=== PATIENT | female | born 1950 | race Caucasian/White ===

== ENCOUNTER 2017-06-03 08:46 | Emergency (ER) | payer MEDICARE, OTHER, SELFPAY ==
[2017-06-03 09:15] VITALS: BP 169/96; PULSE 98; RESP 16; TEMP 36.6; O2SAT 96; BMI 30.1
--- NOTE | 2017-06-03 09:21 | HMH.EDUTC ---
[facility] [place]ression: Acute pharyngitis Qualifiers: Pharyngitis/tonsillitis etiology: unspecified etiology Qualified Code(s): J02.9 - Acute pharyngitis, unspecified Disposition: Home, Self-Care Condition on Discharge: Good Instructions: DI for Viral Pharyngitis Additional Instructions: * No sign of bacterial infection. Likely viral. Virus can take 7-14 days to run their course * Monitor Temp. Follow up if fever develops. * Encourage fluids, water, gatorade, powerade, pedialyte if /toddler/child * warm salt water gargles * warm fluids * sore throat lozenges * sleep elevated * humidifier/vaporizer * Continue your flonase. * Can try Coricidin HBP products over the counter. Safe for those with high blood pressure. * Discussed steroids including risks, benefits, side effects. pt plans to follow up for new, worsening or persisting symptoms. * * Your throat swab was sent for culture. Those results are typically sent to your primary care. Be sure to follow up in 2-3 days if no improvement so they can review those results and treat if necessary. If you don't have primary care, I recommend you get one but in the mean time, you will have to return to a walk in clinic. Referrals: Lashonda Short APRN [Primary Care Provider] - (Follow up IMMEDIATELY for new or worsening symptoms OR no noticeable improvement over the next 48-72 hours. 911 for difficulty breathing or swallowing) Time of Disposition: 09:36 Medical Decision Making Vital Signs: 06/03/17 09:15 Temperature 97.9 F Temperature Source Temporal Artery Scan Pulse Rate [Right Radial] 98 H Respiratory Rate 16 Blood Pressure [Left Arm] 169/96 Blood Pressure Mean [Left Arm] 120 02 Sat by Pulse Oximetry 96 Oxygen Delivery Method Room Air - Lab Data Lab results reviewed: Yes: I reviewed the patient's lab results. Flu a neg Flu B neg Strep neg - Raul Inquiry Pt receiving controlled substance: No [facility] [place] General Stated complaint: sore throat Time Seen by Provider: 06/03/17 09:14 Mode of Arrival: Family Vehicle Source of Information: Patient Limitations: No Limitations Description of Symptoms (Recalled from Triage Doc. by RN): pt states her sore throat and diarrhea started on sunday but now she is having fevers, aches, chills also. HEENT Symptoms (Recalled from RN notes): Yes (sore throat, fever, body aches, chills) Resp Symptoms (Recalled from RN notes): No Skin Symptoms (Recalled from RN notes): No MS Symptoms (Recalled from RN notes): No Functional Status (Recalled from RN notes): na - History of Present Illness Provider Complaint: c/o primarily of sore throat. Wants to be sure no flu or strep. [place] ok Sunday. Sunday evening diarrhea. Sunday night, sore throat developed in middle of night. Better yesterday but worse again last night. Better since being awake this morning and having hot tea. Accompanied w/ fatigue, rhinorrhea, aches, chills. No fever. baseline chronic cough. Unchanged. No known sick contacts. Hasn't taken anything other than daily medications since symptoms started. 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) flovent, ventolin, flonase, azelastine, singulair, albuterol nebs PRN - Related Data Allergies Allergy/AdvReac Type Severity Reaction Status Date / Time amlodipine [From [facility]] Allergy Unknown NA-NAUSEA/V Verified 06/03/17 09:03 OMITING ciprofloxacin [CIPROFLOXACIN] Allergy Unknown NA-NAUSEA/V Verified 06/03/17 09:03 OMITING codeine [CODEINE] Allergy Unknown NA-NAUSEA/VOMITING Verified 06/03/17 09:03 SEVERE hydrochlorothiazide Allergy Unknown NA-NAUSEA/VOMITING Verified 06/03/17 09:03 [From HYZAAR] CAN TAKE HCTZ NOT HYZARR levofloxacin [From [facility]QU[facility]] Allergy Unknown NA-NAUSEA/V Verified 06/03/17 09:03 OMITING lisinopril [LISINOPRIL] Allergy Unknown NA-NAUSEA/V Verified 06/03/17 09:03 OMITING
--- NOTE | 2017-06-03 09:24 | ED_ITS ---
[facility] [place] Clinical Impression: Acute pharyngitis Qualifiers: Pharyngitis/tonsillitis etiology: unspecified etiology Qualified Code(s): J02.9 - Acute pharyngitis, unspecified Disposition: Home, Self-Care Condition on Discharge: Good Instructions: DI for Viral Pharyngitis Additional Instructions: * No sign of bacterial infection. Likely viral. Virus can take 7-14 days to run their course * Monitor Temp. Follow up if fever develops. * Encourage fluids, water, gatorade, powerade, pedialyte if /toddler/ child * warm salt water gargles * warm fluids * sore throat lozenges * sleep elevated * humidifier/vaporizer * Continue your flonase. * Can try Coricidin HBP products over the counter. Safe for those with high blood pressure. * Discussed steroids including risks, benefits, side effects. pt plans to follow up for new, worsening or persisting symptoms. * * Your throat swab was sent for culture. Those results are typically sent to your primary care. Be sure to follow up in 2-3 days if no improvement so they can review those results and treat if necessary. If you don't have primary care , I recommend you get one but in the mean time, you will have to return to a walk in clinic. Referrals: Lashonda Short APRN [Primary Care Provider] - (Follow up IMMEDIATELY for new or worsening symptoms OR no noticeable improvement over the next 48-72 hours. 911 for difficulty breathing or swallowing) Time of Disposition: 09:36 Medical Decision Making Vital Signs: 06/03/17 09:15 Temperature 97.9 F Temperature Source Temporal Artery Scan Pulse Rate [Right Radial] 98 H Respiratory Rate 16 Blood Pressure [Left Arm] 169/96 Blood Pressure Mean [Left Arm] 120 02 Sat by Pulse Oximetry 96 Oxygen Delivery Method Room Air - Lab Data Lab results reviewed: Yes: I reviewed the patient's lab results. Flu a neg Flu B neg Strep neg - Raul Inquiry Pt receiving controlled substance: No [facility] [place] - General Stated complaint: sore throat Time Seen by Provider: 06/03/17 09:14 Mode of Arrival: Family Vehicle Source of Information: Patient Limitations: No Limitations Description of Symptoms (Recalled from Triage Doc. by RN): pt states her sore throat and diarrhea started on sunday but now she is having fevers, aches, chills also. HEENT Symptoms (Recalled from RN notes): Yes (sore throat, fever, body aches, chills) Resp Symptoms (Recalled from RN notes): No Skin Symptoms (Recalled from RN notes): No MS Symptoms (Recalled from RN notes): No Functional Status (Recalled from RN notes): na - History of Present Illness Provider Complaint: c/o primarily of sore throat. Wants to be sure no flu or strep. [place] ok Sunday. Sunday evening diarrhea. Sunday night, sore throat developed in middle of night. Better yesterday but worse again last night. Better since being awake this morning and having hot tea. Accompanied w/ fatigue , rhinorrhea, aches, chills. No fever. baseline chronic cough. Unchanged. No known sick contacts. Hasn't taken anything other than daily medications since symptoms started. 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] Allergy Unknown NA-NAUSEA/V Verified 06/03/17 09:03 OMITING
[2017-06-03 09:34] LABS: UTC Influenza A Antigen Negative (Negative); UTC Influenza B Antigen Negative (Negative); UTC Strep Screen (Rapid) Negative (Negative)
[2017-06-03 09:35] VITALS: BP 166/92; PULSE 95; RESP 18; TEMP 36.7; O2SAT 97
== END 2017-06-03 09:41 | disposition home or self-care (01) ==
PROVIDERS: Emergency Provider Nurse Practitioner Family; Family Provider Family Medicine; PCP Nurse Practitioner
DX: J02.9 Acute pharyngitis, unspecified (principal); I10 Essential (primary) hypertension
CPT/HCPCS: 87804; 87880; 99202

== ENCOUNTER → 2017-08-03 14:42 | Outpatient (CLI) | payer MEDICARE, OTHER, SELFPAY ==
--- NOTE | 2017-08-03 14:47 | CT_ITS ---
CT soft tissue neck wo con INDICATION: Swelling/knot below left ear left cheek area ITS.REASON: PAROTITIS, NECK SWELLING ORDERING PHYSICIAN: Lashonda Short PATIENT AGE: 67 years TECHNIQUE: Axial images are obtained without contrast. Sagittal and coronal reformatted images are reviewed as well. A BB is placed to courtney the palpable area of interest All CT scans at the facility use one or more dose reduction, viz: automated exposure control; ma/kV adjustment per patient size (including targeted exams where dose is matched to indication; i.e. head); or iterative reconstruction technique. FINDINGS: A BB is placed over the left cheek and inferior to the left ureter to marked areas of palpable interest. The nasopharynx has an unremarkable appearance of the uvula, epiglottis, submandibular glands, and laryngeal area. The palpable region in the left cheek region corresponds to an anterior extension of the left parotid gland . Just deep to the placed BB inferior to the left ear also is the left parotid gland. No parotid mass is evident. No adenopathy. There are scattered small nodes in the neck but no enlarged lymph nodes.. The thyroid gland is somewhat lobular in contour. There are mild centrilobular emphysematous changes in the lung apices. IMPRESSION: 1. The palpable region of interest in the left cheek area represents an anterior extension of the left parotid gland and the palpable area inferior to the left ear also corresponds to the parotid gland. No parotid mass or adenopathy. No sialoliths apparent. 2. Otherwise negative CT neck without contrast
== END ==
PROVIDERS: Family Provider Family Medicine; PCP Nurse Practitioner; Visit Provider Nurse Practitioner
DX: K11.21 Acute sialoadenitis (principal); R22.1 Localized swelling, mass and lump, neck
CPT/HCPCS: 70490

== ENCOUNTER → 2017-12-05 12:47 | Outpatient (CLI) | payer MEDICARE, OTHER, SELFPAY | PROVIDERS: Family Provider Family Medicine; PCP Nurse Practitioner; Visit Provider Nurse Practitioner | DX: R60.1 Generalized edema (principal) | CPT/HCPCS: 93306 ==

== ENCOUNTER → 2018-03-29 09:23 | Outpatient (CLI) | payer MEDICARE, OTHER, SELFPAY ==
--- NOTE | 2018-03-29 09:26 | US_ITS ---
US abdomen limited HISTORY: ORDERING PHYSICIAN: Lashonda Short PATIENT AGE: 68 years Comparison: August [address] abdomen and pelvis (08) (12/08/2013 Sagittal, transverse and decubitus imaging of the gallbladder was performed. GALLBLADDER - minimal sludge in gallbladder. No stones are evident. There is no gallbladder wall thickening. Common duct is normal in diameter. Liver: Large cyst at superior right lobe. Appears be thin-walled clear hepatic cyst measuring up to 8 cm transverse x7.4 cm length x 6.2 cm transverse on ultrasound. ( This measures are slightly smaller, not larger than the July 2013 ultrasound) .-(. A second much smaller hepatic cyst towards the left lobe adjacent vessels at the lisy hepatis was seen on prior CT and ultrasound on but but was not identified, not imaged with today's ultrasound.. . Portal vein with normal direction flow and normal caliber Pancreas: Unremarkable. The head, body & medial tail of pancreas are best visualized and appear satisfactory. No ductal dilatation. Right kidney: Unremarkable appearing. No hydronephrosis. . Normal size measuring 11.35 seem in length cortex well-maintained. IMPRESSION:. 1. Gallbladder with minimal sludge but no gallstones. No wall thickening or inflammation . Common duct normal 2. Large benign hepatic cyst measuring 8 cm at the superior right lobe of liver is again identified. This was seen in 2014 ...
== END ==
PROVIDERS: PCP Nurse Practitioner; Visit Provider Nurse Practitioner
DX: R10.11 Right upper quadrant pain (principal)
CPT/HCPCS: 76705

== ENCOUNTER → 2018-11-20 09:52 | Outpatient (CLI) | payer MEDICARE, OTHER, SELFPAY | PROVIDERS: PCP Family Medicine; Visit Provider Nurse Practitioner | DX: R06.02 Shortness of breath (principal); R60.1 Generalized edema; I10 Essential (primary) hypertension | CPT/HCPCS: 93306 ==

== ENCOUNTER 2019-08-27 19:40 | Emergency (ER) | payer MEDICARE, OTHER, SELFPAY ==
[2019-08-27 19:51] VITALS: BMI 32.8
--- NOTE | 2019-08-27 20:00 | HMH.EDUTC ---
[facility] [place] Clinical Impression: UTI (urinary tract infection) Qualifiers: Urinary tract infection type: site unspecified Hematuria presence: with hematuria Qualified Code(s): N39.0 - Urinary tract infection, site not specified Disposition: Home, Self-Care Condition on Discharge: Good Instructions: Urinary Tract Infection Additional Instructions: Drink plenty of fluids. Take tylenol or ibuprofen for pain or fever. Take the medications as directed. Follow up with your regular doctor. GO TO THE ER FOR ANY WORSENING SYMPTOMS The pyridium will make your urine turn orange, this is an expected side effect. It will stain your clothes if it comes into contact with them. Prescriptions: Ondansetron [Zofran 4mg ODT] 4 mg PO Q8HP PRN #10 tab.rapdis PRN Reason: Nausea Transmission Status: Received by [facility] Nitrofurantoin Monohyd/M-Cryst [Macrobid 100 mg Capsule] 100 mg PO BID 5 Days #10 cap Transmission Status: Received by [facility] Phenazopyridine HCl [Pyridium 200mg Tablet] 200 pow PO TID #6 tab Transmission Status: Received by [facility] Referrals: Kelvin Llamas MD [Primary Care Provider] - Time of Disposition: 20:25 Medical Decision Making - Medical Records Medical records reviewed: No: I reviewed the patient's medical records. - Raul Inquiry Pt receiving controlled substance: No Vital Signs: 08/27/19 20:01 08/27/19 20:36 Temperature 98.7 F 98.7 F Temperature Source Oral Pulse Rate 97 H Pulse Rate [Left Brachial] 97 H Respiratory Rate 18 18 Blood Pressure 196/98 H Blood Pressure [Left Arm] 196/98 H Blood Pressure Mean [Left Arm] 130 Blood Pressure Source [Left Arm] Automatic Cuff Blood Pressure Position [Left Arm] Sitting 02 Sat by Pulse Oximetry 96 Oxygen Delivery Method Room Air - Lab Data Lab results reviewed: Yes: I reviewed the patient's lab results. Lab Results 08/27/19 19:51: Urine Color Dark yellow, Urine Appearance Cloudy, Urine pH 7.0, Ur Specific Bowie 1.015, Urine Protein Trace, Urine Glucose (UA) Negative, Urine Ketones Negative, Urine Blood 3+, Urine Nitrate Positive A, Urine Bilirubin Negative, Urine Urobilinogen 0.2, Ur Leukocyte Esterase 3+ A Orders (Tests/Meds): ED MEDICATIONS Discontinued Medications Generic Name Dose Route Start Last Admin Trade Name Hui PRN Reason Stop Dose Admin Ceftriaxone Sodium 1 gm 08/27/19 20:31 08/27/19 20:20 Rocephin 1gm Vial IM 08/27/19 20:32 1 gm ONCE ONE Administration Protocol Lidocaine HCl 0 ml 08/27/19 20:31 08/27/19 20:20 Lidocaine 1% 10ml Mdv IM 08/27/19 20:32 2.1 ml ONCE ONE Administration ORDERS Category Date Time Status Urine Culture Stat Micro 08/27/19 19:45 Received [facility] [place] - General Stated complaint: possible kidney infection Time Seen by Provider: 08/27/19 20:00 - History of Present Illness Provider Complaint: She c/o burning with urination and urinary frequency since yesterday. She states that occasionally she gets UTIs. - Related Data Home Medications Medication Instructions Recorded Confirmed ibuprofen 800 mg tablet 800 mg PO BID 90 Days #270 08/23/17 08/27/19 losartan 100 mg tablet 100 mg PO DAILY 90 Days #90 08/23/17 08/27/19 sertraline 50 mg tablet 50 mg PO DAILY 90 Days #90 08/23/17 08/27/19 zolpidem 5 mg tablet 5 mg PO HS 90 Days #90 08/23/17 08/27/19 Aspirin [Ecotrin] 325 mg PO DAILY 10/09/18 08/27/19 Levocetirizine Dihydrochloride 5 mg PO DAILY 10/09/18 08/27/19 [Xyzal] Pantoprazole Sodium [Protonix 40mg 40 mg PO DAILY 08/27/19 08/27/19 tablet] Previous Rx's Medication Instructions Recorded Nitrofurantoin Monohyd/M-Cryst 100 mg PO BID 5 Days #10 cap 08/27/19 [Macrobid 100 mg Capsule] Ondansetron [Zofran 4mg ODT] 4 mg PO Q8HP PRN #10 tab.rapdis 08/27/19 Phenazopyridine HCl [Pyridium 200 pow PO TID #6 tab 08/27/19 200mg Tablet] Allergies
[2019-08-27 20:01] VITALS: BP 196/98; PULSE 97; RESP 18; TEMP 37.1; O2SAT 96; BMI 32.8
[2019-08-27 20:08] LABS: Apearance,Urine Cloudy (Clear); Bilirubin,Urine Negative (Negative); Blood, Urine 3+ (Negative); Color,Urine Dark Yellow (Yellow); Glucose,Urine (UA) Negative (Negative); Ketones,Urine Negative (Negative); Protein,Urine Trace (Negative); Specific Gravity, Urine 1.015 (1.005-1.030); Urobilinogen,Urine 0.2 EU/dl (0.2)
[2019-08-27 20:09] LABS: UTC Leukocyte Esterase,Urine 3+ (Negative); UTC Nitrate,Urine Positive (Negative)
[2019-08-27 20:36] VITALS: BP 196/98; PULSE 97; RESP 18; TEMP 37.1; O2SAT 96
== END 2019-08-27 20:46 | disposition home or self-care (01) ==
PROVIDERS: Emergency Provider Nurse Practitioner Family; PCP Family Medicine
DX: N30.00 Acute cystitis without hematuria (principal); I10 Essential (primary) hypertension; F41.8 Other specified anxiety disorders; K21.9 Gastro-esophageal reflux disease without esophagitis; Z88.1 Allergy status to other antibiotic agents; Z88.2 Allergy status to sulfonamides; Z88.5 Allergy status to narcotic agent; Z88.8 Allergy status to other drugs, medicaments and biological substances; Z90.49 Acquired absence of other specified parts of digestive tract; Z90.79 Acquired absence of other genital organ(s)
CPT/HCPCS: G0463; 81003; 87086; 87088; 87186; 96372; 99202

== ENCOUNTER → 2020-06-22 10:32 | Outpatient (POV) | payer MEDICARE, OTHER, SELFPAY | PROVIDERS: Visit Provider Dermatology | DX: Z00.00 Encounter for general adult medical examination without abnormal findings (principal) ==

== ENCOUNTER → 2020-08-23 08:41 | Outpatient (POV) | payer MEDICARE, OTHER, SELFPAY | PROVIDERS: Visit Provider Nurse Practitioner Family | DX: Z00.00 Encounter for general adult medical examination without abnormal findings (principal) ==

== ENCOUNTER → 2020-11-24 10:13 | Outpatient (CLI) | payer MEDICARE, OTHER, SELFPAY ==
--- NOTE | 2020-11-24 10:16 | US_ITS ---
PROCEDURE: US THYROID CLINICAL INDICATION: THYROID NODULE COMPARISON: US THY US THYROID from 08/15/2016 FINDINGS: Right lobe: 4 x 1.8 x 1.8 cm. 3 mm hypoechoic nodule in the mid aspect of the right lobe of the thyroid gland. Heterogeneous echogenicity in the upper pole without discrete nodule. Left lobe: 3.6 x 1.1 x 1.4 cm. 2 mm cyst in the mid polar region. Isthmus: Mildly thickened at 5 mm Additional findings: None IMPRESSION: There are small bilateral hypoechoic nodules of the thyroid gland which appear benign. No suspicious nodules evident. Previously noted areas of heterogeneous echogenicity are less apparent. Dictated by: Dutch Carlson MD 11/24/2020 17:16 Dutch Carlson MD in [place] 11/24/2020 17:16
== END ==
PROVIDERS: PCP Family Medicine; Visit Provider Nurse Practitioner Family
DX: E04.1 Nontoxic single thyroid nodule (principal)
CPT/HCPCS: 76536

== ENCOUNTER → 2020-12-27 10:48 | Outpatient (CLI) | payer MEDICARE, OTHER, SELFPAY ==
--- NOTE | 2020-12-27 10:52 | XR_ITS ---
PROCEDURE: XR LUMBAR SPINE MIN 4V CLINICAL INDICATION: ACUTE LT-SIDED LOW BACK PAIN, W/O SCIATICA COMPARISON: No exams were available for comparison FINDINGS: Mild lumbar scoliosis convex left. Degenerative disc disease L1-S1. 3 mm retrolisthesis L2 on L3 and L3 on L4. Facet arthritic changes are present at L5-S1. There is some sclerosis of the right SI joint inferiorly. No acute fracture or dislocation. No lytic or blastic change. Other findings:None. IMPRESSION: Degenerative changes as described above Dictated by: Dutch Carlson MD 12/27/2020 11:56 Dutch Carlson MD in [place] 12/27/2020 11:56
== END ==
PROVIDERS: PCP Nurse Practitioner Family; Visit Provider Nurse Practitioner Family
DX: M54.5 Low back pain (principal)
CPT/HCPCS: 72110

== ENCOUNTER → 2021-01-19 15:18 | Outpatient (CLI) | payer MEDICARE, OTHER, SELFPAY ==
--- NOTE | 2021-01-19 15:19 | MR_ITS ---
PROCEDURE INFORMATION: Exam: MR Lumbar Spine Without Contrast Exam date and time: 01/19/2021 3:19 PM Age: 70 years old Clinical indication: Low back pain; Additional info: Lumbar ddd TECHNIQUE: Imaging protocol: Multiplanar magnetic resonance images of the lumbar spine without intravenous contrast. COMPARISON: CR XR LUMBAR SPINE MIN 4V 12/27/2020 10:55 AM FINDINGS: Vertebrae: Unremarkable. Spinal cord: Normal signal. No cord compression. L1-L2: There is disc space narrowing and desiccation. There are moderate degenerative end plate changes at this level. Disc bulging extends into both neural foramen causing mild bilateral neural foraminal narrowing. There is facet arthropathy and ligamentum flavum hypertrophy. L2-L3: There is mild retrolisthesis at this level. There is disc space narrowing and desiccation. There are moderate degenerative end plate changes at this level. Disc bulging extends into both neural foramen causing moderate bilateral neural foraminal narrowing, right worse than left. There is facet arthropathy and ligamentum flavum hypertrophy. There is mild spinal canal stenosis. L3-L4: There is mild retrolisthesis at this level. There is disc space narrowing and desiccation. There are moderate degenerative end plate changes at this level. There is a moderate disc/osteophyte complex that flattens the ventral thecal sac. There is a small central disc protrusion. There is moderate/severe bilateral neural foraminal narrowing, right worse than left. There is facet arthropathy and ligamentum flavum hypertrophy. There is mild spinal canal stenosis. L4-L5: There is disc desiccation. There is a moderate disc/osteophyte complex that flattens the ventral thecal sac. There is a small central disc protrusion. Disc bulging extends into both neural foramen causing moderate bilateral neural foraminal narrowing, left worse than right. There is facet arthropathy and ligamentum flavum hypertrophy. There is mild spinal canal stenosis. L5-S1: There is mild retrolisthesis at this level. There is disc space narrowing and desiccation. There are moderate degenerative end plate changes at this level. There is degenerative disc disease including disc space narrowing and dessication. There is moderate disc bulging. There is a superimposed left foraminal disc herniation. There is moderate/severe left-sided neuroforaminal narrowing. There is mild right-sided neuroforaminal narrowing. There is facet arthropathy and ligamentum flavum hypertrophy. Soft tissues: Unremarkable. Liver: A large cystic-appearing mass is suspected in the dome of the liver. Although this is only seen on the coronal research assistant professor sequence, it does not look like artifact. This is not fully characterized on this exam. Kidneys and ureters: There are high signal lesions in the right kidney, possibly cysts, but not fully characterized on this MRI exam. IMPRESSION: 1. Moderate multilevel degenerative changes causing varying degrees of spinal canal and neuroforaminal narrowing. Please see details above. 2. A large cystic-appearing mass is suspected in the dome of the liver. Although this is only seen on the coronal research assistant professor sequence, it does not look like artifact. This is not fully characterized on this exam. Followup ultrasound is recommended.
== END ==
PROVIDERS: PCP Nurse Practitioner Family; Visit Provider Nurse Practitioner Family
DX: M54.50 Low back pain, unspecified (principal); M51.36 Other intervertebral disc degeneration, lumbar region
CPT/HCPCS: 72148; 76376

== ENCOUNTER → 2021-02-03 12:59 | Outpatient (CLI) | payer MEDICARE, OTHER, SELFPAY ==
[2021-02-03 14:33] LABS: Blood Urea Nitrogen 16 mg/dl (7-17); Estimated Glomerular Filt Rate 122 ml/min (>60); GFR (African American) 148 ML/MIN (>60)
== END ==
PROVIDERS: Visit Provider Nurse Practitioner Family
DX: R16.0 Hepatomegaly, not elsewhere classified (principal)
CPT/HCPCS: 36415; 82565; 84520

== ENCOUNTER → 2021-02-09 09:28 | Outpatient (CLI) | payer MEDICARE, OTHER, SELFPAY ==
--- NOTE | 2021-02-09 09:31 | CT_ITS ---
PROCEDURE: CT ABDOMEN WO/W CON CLINICAL HISTORY: LIVER MASS Liver mass seen on recent MRI COMPARISON: CT ABDPELW/O CT ABD PELVIS W/O CONTRAST from 09/16/2013 TECHNIQUE: 100 mL Isovue 370 Axial images obtained with sagittal and coronal reformats. All CT scans at the facility use one or more dose reduction, viz: automated exposure control, ma/kV adjustment per patient size (including targeted exams where dose is matched to indication, i.e. head), or iterative reconstruction technique. FINDINGS: Minimal atelectatic or fibrotic changes are present in the lingula and right middle lobe. There is a small hiatal hernia. A 7.8 x 6 x 6.5 cm isodense lesion is present in the right hepatic lobe posteriorly, segment 7. This is very slightly greater than water density measuring near 11 Hounsfield units. This does not demonstrate contrast enhancement consistent with a hepatic cyst. The liver is otherwise unremarkable. There are small bilateral renal cysts. No renal or ureteral calculi. The adrenal glands, pancreas, and gallbladder have an unremarkable appearance. No intestinal obstruction or free air. There is a small umbilical hernia containing fat. Mild degenerative changes are present in the lumbar spine. There is partial fusion of the right SI joint. IMPRESSION: 8 cm well-circumscribed isodense lesion of the right hepatic lobe consistent with a hepatic cyst. This is not significantly changed compared to 09/16/2013. Dictated by: Dutch Carlson MD 02/10/2021 09:01 Dutch Carlson MD in [place] 02/10/2021 09:01
== END ==
PROVIDERS: PCP Nurse Practitioner Family; Visit Provider Nurse Practitioner Family
DX: R16.0 Hepatomegaly, not elsewhere classified (principal)
CPT/HCPCS: 74170; Q9967

== ENCOUNTER 2021-03-27 11:14 | Emergency (ER) | payer MEDICARE, OTHER, SELFPAY ==
[2021-03-27 12:56] VITALS: BP 162/82; RESP 19; TEMP 37.2; O2SAT 98; BMI 30.1
[2021-03-27 13:29] LABS: UTC Influenza A Antigen Negative (Negative); UTC Influenza B Antigen Negative (Negative)
--- NOTE | 2021-03-27 13:29 | HMH.EDUTC ---
[facility] [place] Disposition Clinical Impression: Upper respiratory infection Qualifiers: URI type: unspecified viral URI Qualified Code(s): J06.9 - Acute upper respiratory infection, unspecified Disposition: Home, Self-Care Condition on Discharge: Good Instructions: DI for Viral Upper Respiratory Infection -- Adult Additional Instructions: covid swab was sent to lab, call later today for results. self isolate until test results are known to be negative No sign of a bacterial infection. Likely viral. Viruses can take 7-14 days to run their course. Nasal saline and bulb syringe or nose Kristen to remove nasal drainage to help with nasal congestion. Hard to eat, drink, sleep with nasal congestion so important to keep this cleaned out. Monitor temp. Tylenol or Motrin as needed for pain or fever Encourage fluids, water, Gatorade, Powerade, Pedialyte if infant/toddler/child Warm salt water gargles Warm fluids Sore throat lozenges Sleep elevated Humidifier/vaporizer Follow-up immediately for new or worsening symptoms or no noticeable improvement over the next 48-72 hours. Prescriptions: predniSONE [Prednisone 20mg Tab] 20 mg PO BID #10 tab Prescription Printed Referrals: Kelvin Llamas MD [Primary Care Provider] - Time of Disposition: 13:50 Medical Decision Making - Raul Inquiry Pt receiving controlled substance: No Vital Signs: 03/27/21 12:56 Temperature 99.0 F Temperature Source Oral Respiratory Rate 19 Blood Pressure [Right Arm] 162/82 H Blood Pressure Mean [Right Arm] 108 Blood Pressure Source [Right Arm] Automatic Cuff Blood Pressure Position [Right Arm] Sitting 02 Sat by Pulse Oximetry 98 Oxygen Delivery Method Room Air - Lab Data Lab Results 03/27/21 13:02: Influenza Type A Ag Negative, Influenza Type B Ag Negative Orders (Tests/Meds): ORDERS Category Date Time Status Covid-19 Nasal PCR ([facility]) Routine Lab 03/27/21 13:11 Received [facility] [place] HPI - General Chief complaint: Urgent [facility] Stated complaint: weakness, cough Time Seen by Provider: 03/27/21 13:29 Mode of Arrival: Ambulatory Source of Information: Patient Limitations: No Limitations Description of Symptoms (Recalled from Triage Doc. by RN): Pt stated that this started sunday with nasal drainage, BAILEY, chills, and nausea. HEENT Symptoms (Recalled from RN notes): Yes Resp Symptoms (Recalled from RN notes): No Skin Symptoms (Recalled from RN notes): No MS Symptoms (Recalled from RN notes): No Functional Status (Recalled from RN notes): n/a - History of Present Illness Provider Complaint: 71 yr old female presents for cough, bailey, chills, clear nasal congestion and sinus pressure. - Related Data Home Medications Medication Instructions Recorded Confirmed ibuprofen 800 mg tablet 800 mg PO BID 90 Days #270 08/23/17 10/20/20 losartan 100 mg tablet 100 mg PO DAILY 90 Days #90 08/23/17 10/20/20 sertraline 50 mg tablet 50 mg PO DAILY 90 Days #90 08/23/17 10/20/20 zolpidem 5 mg tablet 5 mg PO HS 90 Days #90 08/23/17 10/20/20 Aspirin [Ecotrin] 325 mg PO DAILY 10/09/18 10/20/20 Levocetirizine Dihydrochloride 5 mg PO DAILY 10/09/18 10/20/20 [Xyzal] Pantoprazole Sodium [Protonix 40mg 40 mg PO DAILY 08/27/19 10/20/20 tablet] Albuterol Sulfate [Proair Hfa] 2 puff IH NEEDED PRN 10/20/20 Cholecalciferol (Vitamin D3) 1,000 unit PO DAILY 10/20/20 [Vitamin D3 1,000 Unit Cap] Fluticasone Propionate [Flovent 2 puff IH DAILY 10/20/20 Hfa 110mcg Inhaler] Previous Rx's Medication Instructions Recorded Ondansetron [Zofran 4mg ODT] 4 mg PO Q8HP PRN #10 tab.rapdis 08/27/19 predniSONE [Prednisone 20mg 20 mg PO BID #10 tab 03/27/21 Tab] Allergies Allergy/AdvReac Type Severity Reaction Status Date / Time amlodipine [From [facility]] Allergy Unknown NA-NAUSEA/V Verified 03/27/21 13:02 OMITING ciprofloxacin [CIPROFLOXACIN] Allergy Unknown NA-NAUSEA/V Verified 03/27/21 13:02 OMITING codeine [CODE
[2021-03-27 14:04] VITALS: BP 162/82; PULSE 108; RESP 18; TEMP 37.2; O2SAT 98
== END 2021-03-27 14:04 | disposition home or self-care (01) ==
PROVIDERS: Emergency Provider Nurse Practitioner Family; PCP Family Medicine
DX: U07.1 COVID-19 (principal); J06.9 Acute upper respiratory infection, unspecified; K21.9 Gastro-esophageal reflux disease without esophagitis; I10 Essential (primary) hypertension; F41.8 Other specified anxiety disorders
CPT/HCPCS: G0463; 87804; 99202; C9803; U0003; U0005

== ENCOUNTER → 2021-03-29 08:50 | Outpatient (CLI) | payer MEDICARE, OTHER, SELFPAY ==
[2021-03-29] VITALS (7 sets, daily range): BP systolic 115–168; BP diastolic 67–85; PULSE 77–94; RESP 16–18; TEMP 36.1; O2SAT 96–98
== END ==
PROVIDERS: PCP Family Medicine; Visit Provider Family Medicine
DX: U07.1 COVID-19 (principal); Z23 Encounter for immunization
CPT/HCPCS: 96365

== ENCOUNTER 2021-08-24 10:51 | Emergency (ER) | payer MEDICARE, OTHER, SELFPAY ==
[2021-08-24 11:18] LABS: Adenovirus,PCR Not Detected (NotDetected); Bordetella Pertussis Not Detected (NotDetected); Chlamydophila Pneumoniae, PCR Not Detected (NotDetected); Coronavirus 19, PCR Not Detected (NotDetected); Coronavirus 229E Not Detected (NotDetected); Coronavirus NL63 Not Detected (NotDetected); Coronavirus OC43 Not Detected (NotDetected); Coronovirus HKU1,PCR Not Detected (NotDetected); Human Metapneumovirus Not Detected (NotDetected); Influenza A, PCR Not Detected (NotDetected); Influenza AH1, 2009 Not Detected (NotDetected); Influenza AH1, PCR Not Detected (NotDetected); Influenza AH3,PCR Not Detected (NotDetected); Influenza B, PCR Not Detected (NotDetected); Mycoplasma Pneumoniae, PCR Not Detected (NotDetected); Parainfluenza 1, PCR Not Detected (NotDetected); Parainfluenza 2, PCR Not Detected (NotDetected); Parainfluenza 3, PCR Not Detected (NotDetected); Parainfluenza 4, PCR Not Detected (NotDetected); Respiratory Syncytial Virus Not Detected (NotDetected); Rhinovirus/Enterovirus Not Detected (NotDetected)
[2021-08-24 11:21] VITALS: BP 174/93; PULSE 85; RESP 19; TEMP 37.3; O2SAT 95; BMI 31.8
--- NOTE | 2021-08-24 11:25 | HMH.EDUTC ---
[facility] [place] Disposition Clinical Impression: Viral syndrome, Exposure to COVID-19 virus Sinusitis Qualifiers: Sinusitis location: unspecified location Chronicity: acute Recurrence: non-recurrent Qualified Code(s): J01.90 - Acute sinusitis, unspecified Disposition: Home, Self-Care Condition on Discharge: Good Instructions: DI for Sinusitis, DI for Viral Syndrome, Preventing the Spread of Coronavirus Discharge Instructions Additional Instructions: Drink plenty of fluids. Take tylenol or ibuprofen for pain or fever. Take the medications as directed. Follow up with your regular doctor. GO TO THE ER FOR ANY WORSENING SYMPTOMS Quarantine until you know the results of your covid-19 test. Notify your school or workplace of your results and follow their instructions regarding return to work/school. Prescriptions: Benzonatate [Benzonatate 100mg cap] 100 mg PO TIDP PRN #30 cap PRN Reason: Cough Transmission Status: Received by [facility] guaiFENesin [Mucinex 600mg tablet] 1 - 2 tab PO BIDP PRN #30 tab PRN Reason: Congestion Transmission Status: Received by [facility] Azithromycin [Z-Branden 250mg Tab*] 250 mg PO UD DOSE PK #6 tab Transmission Status: Received by [facility] Referrals: Maverick Cobb MD [Primary Care Provider] - Time of Disposition: 11:42 Medical Decision Making - Medical Records Medical records reviewed: No: I reviewed the patient's medical records. - Raul Inquiry Pt receiving controlled substance: No Vital Signs: 08/24/21 11:21 08/24/21 11:47 Temperature 99.2 F 99.0 F Temperature Source Oral Pulse Rate 85 Pulse Rate [Left Radial] 85 Respiratory Rate 19 19 Blood Pressure 174/93 H Blood Pressure [Right Arm] 174/93 H Blood Pressure Mean [Right Arm] 120 02 Sat by Pulse Oximetry 95 - Lab Data Lab results reviewed: Yes: I reviewed the patient's lab results. Orders (Tests/Meds): ORDERS Category Date Time Status Full Resp Panel w/COVID ([facility]) Routine Lab 08/24/21 11:13 Received [facility] [place] HPI - General Stated complaint: h/a, body aches, upset stomach, weakness Time Seen by Provider: 08/24/21 11:25 Mode of Arrival: Ambulatory Source of Information: Patient Limitations: No Limitations Description of Symptoms (Recalled from Triage Doc. by RN): here for covid test. pt had covid in march, and she feels the same way now that she did HEENT Symptoms (Recalled from RN notes): Yes Resp Symptoms (Recalled from RN notes): Yes Skin Symptoms (Recalled from RN notes): No MS Symptoms (Recalled from RN notes): No Functional Status (Recalled from RN notes): wnl - History of Present Illness Provider Complaint: She states that for the past 2 days she has has had chills, sinus congestion, a scratchy sore throat and she has felt bad. She had covid last year and she feels like she did then. - Related Data Home Medications Medication Instructions Recorded Confirmed ibuprofen 800 mg tablet 800 mg PO BID 90 Days #270 08/23/17 07/07/21 losartan 100 mg tablet 100 mg PO DAILY 90 Days #90 08/23/17 07/07/21 sertraline 50 mg tablet 50 mg PO DAILY 90 Days #90 08/23/17 07/07/21 zolpidem 5 mg tablet 5 mg PO HS 90 Days #90 08/23/17 07/07/21 Aspirin [Ecotrin] 325 mg PO DAILY 10/09/18 07/07/21 Levocetirizine Dihydrochloride 5 mg PO DAILY 10/09/18 07/07/21 [Xyzal] Pantoprazole Sodium [Protonix 40mg 40 mg PO DAILY 08/27/19 07/07/21 tablet] Albuterol Sulfate [Proair Hfa] 2 puff IH NEEDED PRN 10/20/20 07/07/21 Cholecalciferol (Vitamin D3) 1,000 unit PO DAILY 10/20/20 07/07/21 [Vitamin D3 1,000 Unit Cap] Fluticasone Propionate [Flovent 2 puff IH DAILY 10/20/20 07/07/21 Hfa 110mcg Inhaler] Previous Rx's Medication Instructions Recorded [id number] 140 gram-sod sulfate 9 See Rx Instructions PO .COMPLEX #3 07/07/21 gram-NaCl 5.2gram-KCl-C oral pwdr each packs Azithromycin [Z-Branden 250mg Tab*] 250 mg PO UD DOSE PK #6 tab 08/24/21 Benzonatate [Benzon
[2021-08-24 11:47] VITALS: BP 174/93; PULSE 85; RESP 19; TEMP 37.2
== END 2021-08-24 11:49 | disposition home or self-care (01) ==
PROVIDERS: Emergency Provider Nurse Practitioner Family; PCP Family Medicine
DX: J01.90 Acute sinusitis, unspecified (principal); B34.9 Viral infection, unspecified; Z20.822 Contact with and (suspected) exposure to COVID-19; I10 Essential (primary) hypertension; K21.9 Gastro-esophageal reflux disease without esophagitis
CPT/HCPCS: 87581; 87632; 87798; 99213; C9803; G0463; U0003; U0005

== ENCOUNTER → 2021-09-24 09:32 | Outpatient (CLI) | payer MEDICARE, OTHER, SELFPAY | PROVIDERS: PCP Nurse Practitioner Family; Visit Provider Ophthalmology | DX: Z01.812 Encounter for preprocedural laboratory examination (principal); Z20.822 Contact with and (suspected) exposure to COVID-19 | CPT/HCPCS: C9803; U0003; U0005 ==

== ENCOUNTER 2021-09-27 07:22 | Day surgery (SDC) | payer MEDICARE, OTHER, SELFPAY ==
[2021-09-22 09:34] VITALS: BMI 31.8
[2021-09-27 07:41] VITALS: BP 166/86; PULSE 88; RESP 18; TEMP 36.6; O2SAT 95
[2021-09-27 08:08] VITALS: BP 168/89; PULSE 84; RESP 20; O2SAT 97
[2021-09-27 08:13] VITALS: BP 163/86; PULSE 79; RESP 18; RESP 20; O2SAT 96
[2021-09-27 08:18] VITALS: BP 162/87; PULSE 79; RESP 18; O2SAT 96
[2021-09-27 08:23] VITALS: BP 158/79; PULSE 80; RESP 16; O2SAT 96
[2021-09-27 08:24] VITALS: BP 173/81; PULSE 82; RESP 16; TEMP 36.6; O2SAT 95
== END 2021-09-27 08:40 | disposition home or self-care (01) ==
LOC: OR 07:24
PROVIDERS: PCP Family Medicine; Visit Provider Ophthalmology
DX: H26.9 Unspecified cataract (principal); F41.9 Anxiety disorder, unspecified; M19.90 Unspecified osteoarthritis, unspecified site; J45.909 Unspecified asthma, uncomplicated; F32.A Depression, unspecified; Z86.79 Personal history of other diseases of the circulatory system
CPT/HCPCS: 66984; V2632

== ENCOUNTER → 2021-10-08 10:06 | Outpatient (CLI) | payer MEDICARE, OTHER, SELFPAY | PROVIDERS: PCP Nurse Practitioner Family; Visit Provider Ophthalmology | DX: Z01.812 Encounter for preprocedural laboratory examination (principal); Z20.822 Contact with and (suspected) exposure to COVID-19 | CPT/HCPCS: C9803; U0003; U0005 ==

== ENCOUNTER 2021-10-11 07:28 | Day surgery (SDC) | payer MEDICARE, OTHER, SELFPAY ==
[2021-10-06 13:38] VITALS: BMI 31.8
[2021-10-11] VITALS (7 sets, daily range): BP systolic 147–183; BP diastolic 76–91; PULSE 64–82; RESP 16–18; TEMP 36.1–36.7; O2SAT 96–100
== END 2021-10-11 09:21 | disposition home or self-care (01) ==
LOC: OR 07:29
PROVIDERS: PCP Nurse Practitioner Family; Visit Provider Ophthalmology
DX: H26.9 Unspecified cataract (principal); J45.909 Unspecified asthma, uncomplicated; F41.9 Anxiety disorder, unspecified; F32.A Depression, unspecified
CPT/HCPCS: 66984; V2632

== ENCOUNTER → 2021-11-08 14:11 | Outpatient (CLI) | payer MEDICARE, OTHER, SELFPAY ==
[2021-11-08 19:19] LABS: Vitamin B12 380 pg/mL (239-931)
== END ==
PROVIDERS: PCP Nurse Practitioner Family; Visit Provider Nurse Practitioner Family
DX: G47.9 Sleep disorder, unspecified (principal); R06.83 Snoring; R26.9 Unspecified abnormalities of gait and mobility; R29.2 Abnormal reflex; R53.83 Other fatigue; R63.5 Abnormal weight gain; R93.7 Abnormal findings on diagnostic imaging of other parts of musculoskeletal system; Z68.32 Body mass index [BMI] 32.0-32.9, adult; G47.33 Obstructive sleep apnea (adult) (pediatric)
CPT/HCPCS: 36415; 82607; 82746; G0399

== ENCOUNTER → 2021-11-14 12:44 | Outpatient (CLI) | payer MEDICARE, OTHER, SELFPAY ==
--- NOTE | 2021-11-14 12:45 | MR_ITS ---
FINAL REPORT CLINICAL HISTORY: gait disturbances, abnormal mri. DIZZINESS. COMPARISON: 01/19/2021 FINDINGS: MRI LUMBAR SPINE W/O CONTRAST Multiplanar MR imaging of the lumbar spine was performed without contrast. On the sagittal T2-weighted images, disc degeneration is seen throughout. There are endplate changes at several levels. There is mild retrolisthesis of L2 on L3 and L3 on L4. There is mild leftward curvature. Note is made of several hemangiomas. There is no evidence of fracture. The conus has an unremarkable appearance. T11-T12: An annular disc bulge is present. T12-L1: An annular disc bulge is present. L1-2: There is an annular disc bulge with facet arthropathy and vertebral osteophytes. L2-3: There is an annular disc bulge with facet arthropathy and vertebral osteophytes. There is moderate right and mild left neural foraminal narrowing. L3-4: There is an annular disc bulge with facet arthropathy and vertebral osteophytes. There is moderate right and mild left neural foraminal narrowing. L4-5: There is an annular disc bulge with facet arthropathy. There is a left foraminal disc protrusion, larger. There is mild right and moderate left neural foraminal narrowing. L5-S1: There is an annular disc bulge with facet arthropathy and vertebral osteophytes. There is mild right and severe left neural foraminal narrowing. There is a 5 mm cyst adjacent to the right side of the L5 spinous process, synovial cyst or ganglion cyst. There is a partially imaged 6.5 cm mass in the liver which may represent a cyst or hemangioma. IMPRESSION: Multilevel disc degeneration and spondylosis with areas of neural foraminal narrowing which is worst on the left at L5-S1. The left foraminal disc protrusion at L4-5 is larger than on the prior exam. 5 mm cyst adjacent to the right side of the L5 spinous process, synovial cyst or ganglion cyst. Partially imaged liver mass may represent a cyst or hemangioma. Reviewed, Interpreted and Dictated by Unruly Byers III, MD Transcribed by Gianna Lozada Authenticated and [facility]
--- NOTE | 2021-11-14 12:45 | MR_ITS ---
FINAL REPORT CLINICAL HISTORY: gait disturbance, DIZZINESS FINDINGS: Multiplanar MR imaging of the brain was performed without contrast. There are scattered foci of increased T2 signal in the cerebral white matter that have a nonspecific appearance but likely represent moderate to severe chronic ischemic/gliotic changes. There is no evidence of intracranial hemorrhage or mass. No abnormal ventricular dilatation is identified. No abnormal extra-axial fluid collection is seen. No abnormality is seen on the diffusion weighted images. The posterior fossa and brainstem are unremarkable. Normal major vessel vascular flow voids are seen. IMPRESSION: Moderate to severe chronic ischemic/gliotic changes. No acute intracranial abnormality. Reviewed, Interpreted and Dictated by Unruly Byers III, MD Transcribed by Sarah Payne Authenticated and [facility]
== END ==
PROVIDERS: PCP Nurse Practitioner Family; Visit Provider Nurse Practitioner Family
DX: G47.9 Sleep disorder, unspecified (principal); R06.83 Snoring; R26.9 Unspecified abnormalities of gait and mobility; R29.2 Abnormal reflex; R53.83 Other fatigue; R63.5 Abnormal weight gain; R93.7 Abnormal findings on diagnostic imaging of other parts of musculoskeletal system; Z68.32 Body mass index [BMI] 32.0-32.9, adult; M54.50 Low back pain, unspecified
CPT/HCPCS: 70551; 72148; 76376

== ENCOUNTER → 2022-04-03 10:11 | Outpatient (CLI) | payer MEDICARE, OTHER, SELFPAY | PROVIDERS: PCP Student in an Organized Health Care Education/Training Program; Visit Provider Student in an Organized Health Care Education/Training Program | DX: R05.9 Cough, unspecified (principal) | CPT/HCPCS: C9803; U0003; U0005 ==

== ENCOUNTER 2022-04-15 08:44 | Emergency (ER) | payer MEDICARE, OTHER, SELFPAY ==
[2022-04-15 09:00] VITALS: BP 147/86; PULSE 102; RESP 20; TEMP 36.6; O2SAT 96; BMI 32.8
[2022-04-15 09:14] LABS: UTC Influenza A Antigen Negative (Negative); UTC Influenza B Antigen Negative (Negative)
--- NOTE | 2022-04-15 09:15 | EXP.UTC ---
Discharge Plan Disposition Patient Disposition: Home, Self-Care Condition: Good Prescriptions Prescriptions: New cephalexin 500 mg capsule 500 mg PO BID Qty: 20 0RF benzonatate 100 mg capsule 100 mg PO TID PRN (Reason: cough) Qty: 30 0RF No Action cetirizine [Zyrtec] 10 mg tablet 10 mg PO DAILY PRN (Reason: allergies) fluticasone propionate 50 mcg/actuation spray,suspension 1 spray intranasal DAILY PRN azelastine 137 mcg (0.1 %) aerosol,spray 1 spray intranasal BID PRN ibuprofen 800 mg tablet 800 mg PO ONCE 90 Days Qty: 90 dextromethorphan-guaifenesin 30-200 mg/5 mL liquid 5 ml PO Q8H PRN (Reason: cough) Qty: 474 0RF Rx Instructions: DNExceed 4 doses/24h cholecalciferol (vitamin D3) 1,000 UNIT capsule 1,000 unit PO DAILY aspirin 325 MG tablet,delayed release (DR/EC) 325 mg PO DAILY pantoprazole 40 MG tablet,delayed release (DR/EC) 40 mg PO DAILY valsartan 160 MG tablet 160 mg PO DAILY zolpidem 5 mg tablet 5 mg PO DAILY sertraline 50 mg tablet 50 mg PO DAILY Referrals Follow up/Referrals: Maverick Cobb MD [Primary Care Provider] - See instructions Activity Restrictions/Add. Instructions Additional Instructions/Restrictions: Start antibiotic today. Be sure to complete entire prescription even if feeling better Monitor temp. Tylenol every 4 hours as needed and / or ibuprofen every 6 hours as needed ( As long as your primary care physician has told you that it ok to take both. For fever/aches/pains ER if no less than 101 despite Tylenol or Motrin Humidifier/vaporizer or hot steamy shower Inhaler every 4-6 hours as needed like we discussed. If unsure how to use it, ask pharmacist to demonstrate how. Should help open airways and improve cough, wheezing, and shortness of breath Mucinex during the day for your cough and cough suppressant only at night. Be sure to drink lots of water. Insurance may not cover a prescriptions for mucinex. Might be cheaper to get 400mg tablets and take 2 tablet in the morning, mid-day and evening with lots of water. *Promethazine DM cough syrup will cause drowsiness. Use only at night. No driving, operating machinery or caring for small children after taking it *Tessalon Perles will not cause drowsiness but use at bedtime to help stop cough so that you may get some rest. *Start steroid today. Helps with inflammation therefore, cough and wheezing. Follow directions on the package. Reviewed side effects. Patient reports taking them before. Follow up IMMEDIATELY for new or worsening of symptoms OR no noticeable improvement over the next 48-72 hours. 911 immediately for any life threatening symptoms such as chest pain or difficulty breathing Clinical Impressions Clinical Impression: Upper respiratory infection Instructions Patient Instructions: Acute Bronchitis, DI for Viral Upper Respiratory Infection -- Adult Discharge ED Provider: Monie Norton [facility] [place] HPI General Stated complaint: sore thoat,cough Time Seen by Provider: 04/15/22 09:05 History of Present Illness Provider Complaint: Pt states that she had RSV several weeks ago and has had a cough since that time. She was seen by Dr. Vail and given a Rocephin and Decadron injection on 04/03. She states that this helped her for a bit and then a couple days ago her symptoms worsened and she started having a productive cough, yellow sinus drainage, body aches, and sore throat. She states that she was around a sick friend a couple days ago at a . Related Data Home Medications Medication Instructions Recorded Confirmed aspirin 325 mg tablet,delayed 325 mg PO DAILY HEART 10/09/18 04/03/22 release pantoprazole 40 mg tablet,delayed 40 mg PO DAILY GERD 08/27/19 04/15/22 release cholecalciferol (vitamin D3) 25 1,000 unit PO DAILY Supplement 10/20/20 04/03/22 mcg (1,00
[2022-04-15 09:30] VITALS: BP 147/86; PULSE 102; RESP 20; TEMP 36.6; O2SAT 96
== END 2022-04-15 09:30 | disposition home or self-care (01) ==
PROVIDERS: Emergency Provider Nurse Practitioner Family; PCP Family Medicine
DX: U07.1 COVID-19 (principal)
CPT/HCPCS: 87804; 99212; 99213; C9803; G0463; U0003; U0005

== ENCOUNTER → 2022-06-27 10:24 | Outpatient (CLI) | payer MEDICARE, OTHER, SELFPAY ==
--- NOTE | 2022-06-27 10:33 | XR_ITS ---
FINAL REPORT CLINICAL HISTORY: CHRONIC COUGH FINDINGS: PA and lateral views of the chest are obtained. There is no prior exam for comparison. The cardiac and mediastinal silhouettes are within normal limits. There is hyperinflation and there is likely underlying emphysema. No focal infiltrate is seen. There is bronchial wall thickening which can be seen with bronchitis. There is no pleural effusion, pneumothorax, or acute osseous abnormality. IMPRESSION: Bronchial wall thickening can be seen with bronchitis. Reviewed, Interpreted and Dictated by Cathy Pan MD Transcribed by Gianna Lozada Authenticated and [facility]
== END ==
PROVIDERS: PCP Nurse Practitioner Family; Visit Provider Nurse Practitioner Family
DX: R05.3 Chronic cough (principal)
CPT/HCPCS: 71046

== ENCOUNTER → 2022-07-24 12:49 | Outpatient (CLI) | payer MEDICARE, OTHER, SELFPAY ==
--- NOTE | 2022-07-24 12:55 | XR_ITS ---
FINAL REPORT CLINICAL HISTORY: BRONCHITIS,COUGH,MILD INTERMITTENT ASTHMA W/EXACERBATION COMPARISON: 06/27/2022 FINDINGS: 2 views of the chest were obtained . The heart is normal in size. The mediastinum is within normal limits. There is partial improvement of bronchial wall thickening. Lungs are otherwise clear. There is no pneumothorax. Osseous structures demonstrate moderate degenerative changes of the thoracic spine. IMPRESSION: Partial improvement of bronchial wall thickening. Reviewed, Interpreted and Dictated by Unruly Byers III, MD Transcribed by Trinidad Rogers Authenticated and [facility]
== END ==
PROVIDERS: PCP Nurse Practitioner Family; Visit Provider Nurse Practitioner Family
DX: J20.9 Acute bronchitis, unspecified (principal); R05.1 Acute cough; J45.21 Mild intermittent asthma with (acute) exacerbation
CPT/HCPCS: 71046

== ENCOUNTER → 2022-08-14 10:12 | Outpatient (CLI) | payer MEDICARE, OTHER, SELFPAY ==
--- NOTE | 2022-08-14 10:23 | XR_ITS ---
FINAL REPORT CLINICAL HISTORY: LT KNEE PAIN,H/O LT TOTAL KNEE REPLACEMENT FINDINGS: 3 views of the left knee were obtained. There has been left knee arthroplasty. A moderate joint effusion is present. There is no acute bony abnormality. IMPRESSION: No acute bony abnormality. Reviewed, Interpreted and Dictated by Unruly Byers III, MD Transcribed by Roberto Mercado Authenticated and [facility]
== END ==
PROVIDERS: PCP Nurse Practitioner Family; Visit Provider Nurse Practitioner Family
DX: M25.562 Pain in left knee (principal); Z96.652 Presence of left artificial knee joint
CPT/HCPCS: 73562

== ENCOUNTER → 2022-10-17 08:46 | Outpatient (CLI) | payer MEDICARE, OTHER, SELFPAY ==
--- NOTE | 2022-10-17 09:38 | NM_ITS ---
FINAL REPORT CLINICAL HISTORY: S/P LT KNEE REPLACEMENT INSTABILITY LY KNEE JOINT, PAIN AND SWELLING FROM KNEE DOWN TO FOOT FINDINGS: BONE SCAN 3 PHASE NM The patient was injected with 25.1 mCi of technetium 99 M MDP. Limited images of the bilateral knees were obtained in 3 phases. Comparison is made to left knee radiographs dated August 14, 2022. There is symmetric blood flow. There is no hyperemia. There is photopenic defect from left knee arthroplasty. There is mild periprosthetic uptake. IMPRESSION: Mild periprosthetic uptake. Loosening cannot be excluded. Reviewed, Interpreted and Dictated by Catyh Pan MD Transcribed by Roberto Mercado Authenticated and [facility]
== END ==
PROVIDERS: PCP Nurse Practitioner Family; Visit Provider Nurse Practitioner Family
DX: M25.362 Other instability, left knee (principal); Z96.652 Presence of left artificial knee joint
CPT/HCPCS: 78315; A9503

== ENCOUNTER → 2022-11-27 12:53 | Outpatient (CLI) | payer MEDICARE, OTHER, SELFPAY ==
--- NOTE | 2022-11-27 12:53 | MM_ITS ---
PROCEDURE INFORMATION: Exam: MG Bilateral Screening 3D Mammography Exam date and time: 11/27/2022 12:52 PM Age: 72 years old Clinical indication: Screening. No family history of breast cancer. TECHNIQUE: Imaging protocol: Bilateral Screening tomosynthesis and 2D mammography including computer-aided detection (CAD) when performed. COMPARISON: 1. MG DMSB DIG MAMM-SCREEN PATRIC W/CAD 07/07/2016 8:53 AM 2. MG DMSB DIG MAMM-SCREEN PATRIC 09/17/2012 2:27 PM 3. MG DMSB DIGITAL MAMM-SCREEN BILATERAL 07/19/2010 10:02 AM 4. MG DIGMAMMS MAMMOGRAM SCREEN-OPERATOR SUPPLY N/C 01/20/2009 10:48 AM FINDINGS: MAMMOGRAPHY: Breast composition: There are scattered areas of fibroglandular density. Mass: None. Architectural distortion: None. Calcifications: No suspicious calcifications. Asymmetric density: No developing asymmetry. Skin thickening: None. Axillary adenopathy: None. IMPRESSION: No mammographic evidence of malignancy. Annual screening is recommended unless otherwise clinically indicated. ASSESSMENT: BI-RADS Category 1: Negative
== END ==
PROVIDERS: PCP Internal Medicine; Visit Provider Internal Medicine
DX: Z12.31 Encounter for screening mammogram for malignant neoplasm of breast (principal)
CPT/HCPCS: 77063; 77067

== ENCOUNTER → 2022-11-30 09:16 | Outpatient (CLI) | payer MEDICARE, OTHER, SELFPAY ==
--- NOTE | 2022-11-30 09:16 | CT_ITS ---
FINAL REPORT TECHNIQUE: Thin section axial CT images with coronal and sagittal reformats were performed of the left knee. 3D reformatted images were also obtained and reviewed. This study was performed with techniques to keep radiation doses as low as reasonably achievable (ALARA). Individualized dose reduction techniques using automated exposure control or adjustment of mA and/or kV according to the patient''s size were employed. CLINICAL HISTORY: Left knee pain, swelling, previous total knee COMPARISON: None FINDINGS: There is extensive streak artifact from total knee prosthesis. There are no fractures. There are no masses. There is a moderate joint effusion. There are no soft tissue abnormalities. IMPRESSION: Extensive streak artifact from total knee prosthesis. Moderate joint effusion. No acute bony abnormality. Reviewed, Interpreted and Dictated by Maksim Dao MD Transcribed by Diane Cary Authenticated and [facility]
== END ==
PROVIDERS: PCP Internal Medicine; Visit Provider Internal Medicine
DX: M25.562 Pain in left knee (principal); Z96.652 Presence of left artificial knee joint
CPT/HCPCS: 73700

== ENCOUNTER 2023-01-06 10:57 | Emergency (ER) | payer MEDICARE, OTHER, SELFPAY ==
[2023-01-06 11:10] VITALS: BP 198/103; PULSE 101; RESP 22; TEMP 37.4; O2SAT 94; BMI 32.9
--- NOTE | 2023-01-06 11:38 | EXP.UTC ---
Discharge Plan Disposition Patient Disposition: Home, Self-Care Condition: Good Prescriptions Prescriptions: New prednisone [prednisone] 20 mg tablet 20 mg PO BID 5 Days Qty: 10 0RF amoxicillin-pot clavulanate 875-125 mg Tablet 1 tab PO Q12H Qty: 20 0RF Paxlovid 300 mg (150 mg x 2)-100 mg tablets,dose pack See Rx Instructions .ROUTE .COMPLEX Qty: 30 0RF Rx Instructions: take TWO 150 mg tablets of nirmatrelvir with ONE 100 mg tablet of ritonavir twice daily for 5 days No Action cetirizine [Zyrtec] 10 mg tablet 10 mg PO DAILY PRN (Reason: allergies) fluticasone propionate 50 mcg/actuation spray,suspension 1 spray intranasal DAILY PRN azelastine 137 mcg (0.1 %) aerosol,spray 1 spray intranasal BID PRN ibuprofen 800 mg tablet 800 mg PO DAILY PRN (Reason: Pain) 90 Days Qty: 90 albuterol sulfate 90 mcg/actuation HFA aerosol inhaler 2 puff inhalation Q6H PRN fluticasone propionate [Flovent HFA] 110 mcg/actuation HFA aerosol inhaler 2 puff inhalation BID cholecalciferol (vitamin D3) 25 mcg (1,000 unit) capsule 5,000 unit PO DAILY sertraline 50 mg tablet 50 mg PO DAILY Qty: 90 1RF valsartan 160 mg tablet 240 mg PO DAILY Qty: 90 2RF aspirin 325 MG tablet,delayed release (DR/EC) 325 mg PO DAILY pantoprazole 40 MG tablet,delayed release (DR/EC) 40 mg PO DAILY zolpidem 5 mg tablet 5 mg PO DAILY Referrals Follow up/Referrals: Royce Gaona DO [Primary Care Provider] - See instructions Activity Restrictions/Add. Instructions Additional Instructions/Restrictions: Follow up with Dr Gaona next week Clinical Impressions Clinical Impression: Sinusitis, Close exposure to 2019-nCoV Instructions Patient Instructions: DI for Sinusitis Discharge ED Provider: Lisa Kan [facility] [place] HPI General Stated complaint: headache,nausea,achey Mode of Arrival: Ambulatory Source of Information: Patient Limitations: No Limitations Time Seen by Provider: 01/06/23 11:38 Description of Symptoms (Recalled from Triage Doc. by RN): PATIENT C/O HEADACHE, BODY ACHES, SINUS DRAINAGE, SOA, AND DECREASED APPETITE SINCE YESTERDAY MORNING. RECENTLY EXPOSED TO COVID HEENT Symptoms (Recalled from RN notes): Yes Resp Symptoms (Recalled from RN notes): Yes Skin Symptoms (Recalled from RN notes): No MS Symptoms (Recalled from RN notes): No Functional Status (Recalled from RN notes): WNL History of Present Illness Provider Complaint: Headache, sinus pain and pressure, drainage, nausea X 1 day. Has been exposed to COVID. Onset (ago): day(s) (1) Relieving factors: none Exacerbating factors: none Associated symptoms: denies other symptoms Treatments prior to arrival: none Related Data Home Medications Medication Instructions Recorded Confirmed aspirin 325 mg tablet,delayed 325 mg PO DAILY HEART 10/09/18 11/02/22 release pantoprazole 40 mg tablet,delayed 40 mg PO DAILY GERD 08/27/19 11/02/22 release cetirizine 10 mg tablet (Zyrtec) 10 mg PO DAILY PRN allergies 11/07/21 11/02/22 azelastine 137 mcg (0.1 %) nasal 1 spray intranasal BID PRN 11/28/21 11/02/22 spray aerosol fluticasone propionate 50 1 spray intranasal DAILY PRN 11/28/21 11/02/22 mcg/actuation nasal spray,suspension zolpidem 5 mg tablet 5 mg PO DAILY sleep 04/15/22 11/02/22 albuterol sulfate 90 mcg/actuation 2 puff inhalation Q6H PRN 11/02/22 11/02/22 aerosol inhaler cholecalciferol (vitamin D3) 25 5,000 unit PO DAILY Supplement 11/02/22 11/02/22 mcg (1,000 unit) capsule fluticasone propionate 110 2 puff inhalation BID 11/02/22 11/02/22 mcg/actuation HFA aerosol inhaler (Flovent HFA) ibuprofen 800 mg tablet 800 mg PO DAILY PRN Pain 90 days 11/02/22 11/02/22 #90 tabs Previous Rx's Medication Instructions Recorded sertraline 50 mg tablet 50 mg PO DAILY mood #90 tabs 12/14/22 valsartan 160 mg tablet 240 mg PO DAILY BP #90 tabs 12/14/22 amoxicillin 875 mg-p
[2023-01-06 11:45] VITALS: BP 188/105
[2023-01-06 11:50] VITALS: BP 188/105; PULSE 101; RESP 22; TEMP 37.4; O2SAT 94
== END 2023-01-06 11:58 | disposition home or self-care (01) ==
PROVIDERS: Emergency Provider Physician Assistant; PCP Internal Medicine
DX: U07.1 COVID-19 (principal); R06.02 Shortness of breath; R51.9 Headache, unspecified
CPT/HCPCS: 87635; 96372; 99212; 99214; G0463; J1040

== ENCOUNTER → 2023-03-09 09:18 | Outpatient (CLI) | payer MEDICARE, OTHER, SELFPAY ==
--- NOTE | 2023-03-09 09:25 | US_ITS ---
FINAL REPORT CLINICAL HISTORY: Thyroid nodule check COMPARISON: 11/24/2020 FINDINGS: THYROID ULTRASOUND: The right lobe of the thyroid measures 3.8 x 1.6 x 1.5 cm in size. There is a 3 x 2 x 2 mm solid hypoechoic nodule present, with a punctate echoic focus, a TI-RADS category 5 nodule which is stable since the prior ultrasound. Another right nodule that was identified on the prior exam is no longer seen. The left lobe of the thyroid measures 3.6 x 1.0 x 1.2 cm in size. There is a nodule present which measures 3 x 2 x 2 mm in size, solid, hypoechoic, a TI-RADS category 4 nodule, which is stable since the prior ultrasound. IMPRESSION: Small less than 5 mm in size single nodules in each lobe of the thyroid as described, by TI-RADS criteria no follow-up is required at this time. Reviewed, Interpreted and Dictated by Unruly Byers III, MD Transcribed by Paola Osei Authenticated and [facility]
== END ==
PROVIDERS: PCP Internal Medicine; Visit Provider Internal Medicine
DX: E04.1 Nontoxic single thyroid nodule (principal)
CPT/HCPCS: 76536

== ENCOUNTER 2023-04-04 08:48 | Outpatient (CLI) | payer MEDICARE, OTHER, SELFPAY ==
[2023-04-04 18:01] LABS: Basophils % 0.6 % (0.1-2.0); Eosinophils # 0.3 K/mm3 (0.0-0.4); Eosinophils % 3.5 % (0.1-12.0); Hematocrit 37.9 % (37.0-47.0); Hemoglobin 12.6 g/dL (12.2-16.2); Lymphocytes # 2.1 K/mm3 (0.7-4.5); Mean Corpuscular HGB Conc 33.1 g/dL (31.8-35.4); Mean Corpuscular Hemoglobin 30.5 pg (27.0-31.2); Mean Corpuscular Volume 92.2 fl (81-99); Mean Platelet Volume 8.2 fl (7.4-10.4); Monocytes # 0.5 K/mm3 (0.1-1.0); Monocytes % 6.1 % (1.7-9.3); Neutrophils # 4.5 K/mm3 (1.8-7.8); Neutrophils % 60.9 % (37.0-80.0); Platelet Count 520 K/mm3 (142-424); Red Blood Count 4.11 M/mm3 (4.20-5.40); Red Cell Distribution Width 14.4 % (11.5-17.5); White Blood Count 7.4 K/mm3 (4.8-10.8)
[2023-04-04 19:12] LABS: Alanine Aminotransferase 25 U/L (12-78); Albumin Level 4.5 g/dl (3.5-5.0); Albumin/Globulin Ratio 1.7 (1.1-1.8); Alkaline Phosphatase 96 U/L (38-126); Anion Gap 10.3 mEq/L (5-15); Aspartate Amino Transferase 31 U/L (14-36); Bilirubin,Total 0.3 mg/dl (0.2-1.3); Blood Urea Nitrogen 17 mg/dl (7-17); Calcium 9.2 mg/dl (8.4-10.2); Carbon Dioxide 28 mmol/L (22.0-30.0); Chloride 100 mmol/L (98-107); Chol/HDL Ratio 4.4 (1-3.5); Cholesterol 242 mg/dl (140-200); Estimated Glomerular Filt Rate 98 ml/min (>60); GFR (African American) 119 ML/MIN (>60); Globulin 2.7 g/dL (1.3-3.2); Glucose 78 mg/dl (74-100); HDL Cholesterol 55 mg/dl (40-60); Potassium 4.3 mmoL/L (3.5-5.1); Sodium 134 mmol/L (136-145); Total Protein,Serum 7.2 g/dl (6.3-8.2); Triglycerides 141 mg/dl (30-150); Uric Acid 4.4 mg/dl (2.5-6.2); VLDL Cholesterol 28 mg/dL (0-40)
[2023-04-04 19:14] LABS: Erythrocyte Sedimentation Rate 25 mm/hr (0-30)
[2023-04-04 19:32] LABS: Direct LDL Cholesterol 119.77 mg/dL (100-129)
[2023-04-06 08:19] LABS: RA Latex Turbid. 10.3 IU/mL (<14.0)
[2023-04-18 08:29] LABS: Antinuclear Antibodies, IFA Positive
== END 2023-04-04 23:59 ==
LOC: LAB.DROPOF 04-05 08:48
PROVIDERS: PCP Nurse Practitioner Family; Visit Provider Nurse Practitioner Family
DX: M25.50 Pain in unspecified joint (principal); I10 Essential (primary) hypertension; D75.839 Thrombocytosis, unspecified
CPT/HCPCS: 80053; 80061; 84550; 85025; 85651; 86038; 86431

== ENCOUNTER 2023-09-04 09:19 | Outpatient (CLI) | payer MEDICARE, OTHER, SELFPAY ==
--- NOTE | 2023-09-04 09:20 | XR_ITS ---
FINAL REPORT CLINICAL HISTORY: screening for osteoporosis COMPARISON: None FINDINGS: Using L1-4, the bone mineral density of the spine is 1.000 g/cm2, corresponding to T-score of -0.4 which is within normal limits. Using the left hip, the bone mineral density of the femoral neck is 0.77 to g/cm2, corresponding to a T-score of -1.4 which is consistent with low bone density. Using the right hip, the bone mineral density of the femoral neck is 0.744 g/cm2, corresponding to a T-score of -0.9 which is within normal limits. FRAX 10 year fracture risk is 1.2% for a hip fracture and 9.1% for a major osteoporotic fracture. NOTE: T-score: Standard deviation compared with peak bone mass of young adult mean. *Following the recommendations of the International Society of Bone densitometry, classification of hip BMD is based on the lower of two T-scores; total hip or femoral neck. IMPRESSION: Diminished bone mineral density consistent with low bone density. Reviewed, Interpreted and Dictated by Unruly Byers III, MD Transcribed by Diane Cary Authenticated and [facility]
== END 2023-09-04 23:59 | disposition home or self-care (01) ==
LOC: RAD 09:20
PROVIDERS: PCP Nurse Practitioner Family; Visit Provider Nurse Practitioner Family
DX: Z13.820 Encounter for screening for osteoporosis (principal); M85.88 Other specified disorders of bone density and structure, other site
CPT/HCPCS: 77080

== ENCOUNTER 2023-11-15 12:34 | Outpatient (CLI) | payer MEDICARE, OTHER, SELFPAY ==
--- NOTE | 2023-11-15 12:35 | US_ITS ---
FINAL REPORT CLINICAL HISTORY: RT AXILLA LUMP FINDINGS: Sonographic images of the right axillary region were obtained. There is no mass or abnormal fluid collection. IMPRESSION: Unremarkable exam. Reviewed, Interpreted and Dictated by Unruly Byers III, MD Transcribed by Petra Hutchison Authenticated and [facility]
== END 2023-11-15 23:59 | disposition home or self-care (01) ==
LOC: RAD 12:35
PROVIDERS: PCP Nurse Practitioner Family; Visit Provider Nurse Practitioner Family
DX: N63.31 Unspecified lump in axillary tail of the right breast (principal)
CPT/HCPCS: 76642

== ENCOUNTER 2023-12-05 13:25 | Outpatient (CLI) | payer MEDICARE, OTHER, SELFPAY | END 2023-12-05 23:59 | disposition home or self-care (01) | LOC: LAB.DROPOF 13:26 | PROVIDERS: PCP Nurse Practitioner Family; Visit Provider Nurse Practitioner Family | DX: R35.0 Frequency of micturition (principal); R39.15 Urgency of urination; R39.89 Other symptoms and signs involving the genitourinary system | CPT/HCPCS: 87086 ==

== ENCOUNTER 2024-01-09 13:35 | Outpatient (CLI) | payer MEDICARE, OTHER, SELFPAY ==
[2024-01-09 18:04] LABS: Adenovirus,PCR Not Detected (NotDetected); Bordetella Pertussis Not Detected (NotDetected); Chlamydophila Pneumoniae, PCR Not Detected (NotDetected); Coronavirus 19, PCR Not Detected (NotDetected); Coronavirus 229E Not Detected (NotDetected); Coronavirus NL63 Not Detected (NotDetected); Coronavirus OC43 Not Detected (NotDetected); Coronovirus HKU1,PCR Not Detected (NotDetected); Human Metapneumovirus Not Detected (NotDetected); Influenza A, PCR Not Detected (NotDetected); Influenza AH1, 2009 Not Detected (NotDetected); Influenza AH1, PCR Not Detected (NotDetected); Influenza AH3,PCR Not Detected (NotDetected); Influenza B, PCR Not Detected (NotDetected); Mycoplasma Pneumoniae, PCR Not Detected (NotDetected); Parainfluenza 1, PCR Not Detected (NotDetected); Parainfluenza 2, PCR Not Detected (NotDetected); Parainfluenza 3, PCR Not Detected (NotDetected); Parainfluenza 4, PCR Not Detected (NotDetected); Respiratory Syncytial Virus Not Detected (NotDetected); Rhinovirus/Enterovirus Not Detected (NotDetected)
== END 2024-01-09 23:59 | disposition home or self-care (01) ==
LOC: LAB.DROPOF 01-10 09:42
PROVIDERS: PCP Nurse Practitioner Family; Visit Provider Nurse Practitioner Family
DX: J06.9 Acute upper respiratory infection, unspecified (principal); R05.9 Cough, unspecified; R09.81 Nasal congestion; Z20.822 Contact with and (suspected) exposure to COVID-19
CPT/HCPCS: 87265; 87486; 87581; 87632; 87635

== ENCOUNTER 2024-07-15 12:10 | Outpatient (CLI) | payer MEDICARE, OTHER, SELFPAY ==
[2024-07-15 13:15] LABS: Basophils # 0.1 K/mm3 (0-0.2); Basophils % 0.8 % (0.1-2.0); Eosinophils # 0.3 K/mm3 (0.0-0.4); Eosinophils % 3.6 % (0.1-12.0); Hemoglobin 12.5 g/dL (12.2-16.2); Mean Corpuscular HGB Conc 33.8 g/dL (31.8-35.4); Mean Corpuscular Hemoglobin 29.9 pg (27.0-31.2); Mean Corpuscular Volume 88.5 fl (81-99); Mean Platelet Volume 9.5 fl (7.4-10.4); Monocytes # 0.6 K/mm3 (0.1-1.0); Monocytes % 8.6 % (1.7-9.3); Neutrophils # 4.2 K/mm3 (1.8-7.8); Neutrophils % 58.4 % (37.0-80.0); Nucleated Red Blood Cells # 0 10^3/uL; Nucleated Red Blood Cells % 0 %; Platelet Count 495 K/mm3 (142-424); Red Blood Count 4.18 M/mm3 (4.20-5.40); Red Cell Distribution Width 13.8 % (11.5-17.5); Red Cell Distribution Width-SD 44.6 fL; White Blood Count 7.2 K/mm3 (4.8-10.8)
[2024-07-15 13:39] LABS: Alanine Aminotransferase 30 U/L (12-78); Albumin Level 4.6 g/dl (3.5-5.0); Albumin/Globulin Ratio 1.4 (1.1-1.8); Alkaline Phosphatase 90 U/L (38-126); Anion Gap 14.5 mEq/L (5-15); Aspartate Amino Transferase 31 U/L (14-36); Bilirubin,Total 0.4 mg/dl (0.2-1.3); Blood Urea Nitrogen 15 mg/dl (7-17); Calcium 10.1 mg/dl (8.4-10.2); Carbon Dioxide 27 mmol/L (22.0-30.0); Chloride 101 mmol/L (98-107); Chol/HDL Ratio 3.9 (1-3.5); Cholesterol 238 mg/dl (140-200); Estimated Glomerular Filt Rate 121 ml/min (>60); GFR (African American) 146 ML/MIN (>60); Globulin 3.2 g/dL (1.3-3.2); Glucose 91 mg/dl (74-100); HDL Cholesterol 61 mg/dl (40-60); Magnesium 2.1 mg/dl (1.6-2.3); Potassium 4.5 mmoL/L (3.5-5.1); Sodium 138 mmol/L (136-145); Total Protein,Serum 7.8 g/dl (6.3-8.2); Triglycerides 188 mg/dl (30-150); VLDL Cholesterol 38 mg/dL (0-40)
[2024-07-15 13:50] LABS: Direct LDL Cholesterol 106.64 mg/dL (100-129)
[2024-07-15 13:54] LABS: Free T4 (Free Thyroxine) 1.42 ng/dl (0.78-2.19)
[2024-07-15 13:56] LABS: T4 (Thyroxine) 10.5 ug/dl (5.53-11.0)
[2024-07-15 14:09] LABS: Thyroid Stimulating Hormone 1.01 uIU/mL (0.465-4.68)
[2024-07-15 14:28] LABS: Vitamin B12 437 pg/mL (239-931)
[2024-07-15 15:08] LABS: Ferritin 35.6 ng/ml (11.1-264)
[2024-07-16 08:42] LABS: Triiodothyronine (T3) Free 2.9 pg/mL (2.0-4.4)
== END 2024-07-15 23:59 | disposition home or self-care (01) ==
LOC: LAB.DROPOF 07-16 10:07
PROVIDERS: PCP Nurse Practitioner Family; Visit Provider Nurse Practitioner Family
DX: E04.1 Nontoxic single thyroid nodule (principal); I10 Essential (primary) hypertension; D64.9 Anemia, unspecified; M85.80 Other specified disorders of bone density and structure, unspecified site; Z68.34 Body mass index [BMI] 34.0-34.9, adult; E66.9 Obesity, unspecified
CPT/HCPCS: 80053; 80061; 82306; 82607; 82728; 83735; 84436; 84439; 84443; 84481; 85025

== ENCOUNTER 2024-07-29 08:42 | Outpatient (CLI) | payer MEDICARE, OTHER, SELFPAY ==
--- OUTSIDE RECORDS SUMMARY | 2024-07-29 08:44 | XMS_ITS | Continuity of Care Document ---
Author Name [facility] Organization [facility] Care Team Providers Care Armhole Raiser Lockstitch Name Role Phone [facility] Unavailable Unavailable Medications Combined list of outpatient medications from Department of Defense and Veterans Affairs facilities.Medications provided include 1) outpatient medications from the last 15 months, and 2) patient-reported medications. Medication Details Route Status Patient Instructions Prescription Expires Prescription Number Last Dispense Date Ordering Provider Order Date Order Qty Source CETIRIZINE HCL (cetirizine HCl), 10 MG, TABLET, ORAL, MAJOR PHARMACEU, 90 ea. BOTTLE Active [id number] 4 2023 90 Pharmac y Data Transac tion Service Facilit y CETIRIZINE HCL (cetirizine HCl), 10 MG, TABLET, ORAL, MAJOR PHARMACEU, 90 ea. BOTTLE Cancele d [id number] : 2023 0 Pharmac y Data Transac tion Service Facilit y CLOBETASOL PROPIONATE (clobetasol propionate) , 0.05 %, OINT. (G), TOPICAL, [employer], 30 g TUBE Active [id number] 4 2023 30 Pharmac y Data Transac tion Service Facilit y IBANDRONATE SODIUM (ibandronat e sodium), 150 MG, TABLET, ORAL, [employer] 3 ea. BLIST PACK Active [id number] 4 2023 3 Pharmac y Data Transac tion Service Facilit y MELOXICAM (meloxicam) , 15 MG, TABLET, ORAL, [employer] 1000 ea. BOTTLE Active [id number] 2023 90 Pharmac y Data Transac tion Service Facilit y Meloxicam (Meloxicam) , 15mg, Tablet, Oral, [employer] [facility], 1000 Ea. Bottle Active [id number] 4 2023 30 Pharmac y Data Transac tion Service Facilit y PANTOPRAZOL E SODIUM (pantoprazo le sodium), 40 MG, TABLET DR, ORAL, [employer] 1000 ea. BOTTLE Active [id number] 4 2023 90 Pharmac y Data Transac tion Service Facilit y PANTOPRAZOL E SODIUM (pantoprazo le sodium), 40 MG, TABLET DR, ORAL, [employer] 1000 ea. BOTTLE Active [id number] 2023 90 Pharmac y Data Transac tion Service Facilit y SERTRALINE HCL (sertraline HCl), 50 MG, TABLET, ORAL, EXELAN PHARMACE, 180 ea. BOTTLE Active [id number] 2023 90 Pharmac y Data Transac tion Service Facilit y SERTRALINE HCL (sertraline HCl), 50 MG, TABLET, ORAL, EXEL[employer] PHARMACE, 180 ea. BOTTLE Cancele d [id number] : 2023 0 Pharmac y Data Transac tion Service Facilit y VALSARTAN (valsartan) , 160 MG, TABLET, ORAL, [employer], 90 ea. BOTTLE Active [id number] 2023 135 Pharmac y Data Transac tion Service Facilit y VALSARTAN (VALSARTAN) , 160 MG, TABLET, ORAL, [facility] 90 ea. BOTTLE Active [id number] 4 2023 135 Pharmac y Data Transac tion Service Facilit y ZOLPIDEM TARTRATE (zolpidem tartrate), 5 MG, TABLET, ORAL, [employer], 1000 ea. BOTTLE Active [id number] 2023 90 Pharmac y Data Transac tion Service Facilit y Immunizations Combined list of available immunizations from the Department of Defense and Veterans Affairs facilities. Immunization Series Date Given Administered By Site Reaction Lot Number CVX Code Drug Splitter Head Status Comments Source Hep A, adult 2018 DUANE RIOJAS () Not Given Hep A, adult DoD zoster live 2015 DEEPALI ZHANG () Not Given zoster live DoD Social History Combined list of available smoking, tobacco, and other social history from Department of Defense and Veterans Affairs facilities. Social History Type Response Date Comment [facility] e This section is an empty social history section. DoD
--- NOTE | 2024-07-29 09:00 | US_ITS ---
FINAL REPORT CLINICAL HISTORY: Hepatic cyst COMPARISON: CT dated 02/09/2021 FINDINGS: In RIGHT UPPER QUADRANT ULTRASOUND Technique: Ultrasound images of the right upper quadrant were obtained. There is mild fatty infiltration of the liver. There is a small anechoic focus in the lateral segment of the left lobe of the liver measuring 1.3 x 0.7 cm. The previously noted dominant cystic structure in the right lobe of the liver is no longer identified. The gallbladder is well visualized and the wall appears normal. There are no gallstones. Common duct is normal. The right kidney is unremarkable. IMPRESSION: Previously noted dominant cystic structure in the right lobe of the liver is no longer seen. Small anechoic focus in the lateral segment left lobe of the liver, may represent a small benign-appearing cyst. Reviewed, Interpreted and Dictated by Maksim Dao MD Transcribed by Petra Hutchison Authenticated and [facility]
--- NOTE | 2024-07-29 09:30 | US_ITS ---
FINAL REPORT CLINICAL HISTORY: Thyroid nodule FINDINGS: Limited sonographic images of the thyroid were obtained. The right lobe of the thyroid is homogeneous measuring 4.2 x 1.6 x 1.4 cm. The left lobe of the thyroid measures 3.9 x 1.4 x 1.3 cm. There is a 4 mm hypoechoic ovoid nodule in the left lobe consistent with TR 4. IMPRESSION: Left thyroid lobe nodule consistent with TR 4. No follow-up is recommended. Reviewed, Interpreted and Dictated by Maksim Dao MD Transcribed by Petra Hutchison Authenticated and [facility] [place]
== END 2024-07-29 23:59 | disposition home or self-care (01) ==
LOC: RAD 08:43
PROVIDERS: PCP Nurse Practitioner Family; Visit Provider Nurse Practitioner Family
DX: K76.89 Other specified diseases of liver (principal); E04.1 Nontoxic single thyroid nodule
CPT/HCPCS: 76536; 76705

== ENCOUNTER 2024-08-12 08:45 | Outpatient (CLI) | payer MEDICARE, OTHER, SELFPAY ==
--- NOTE | 2024-08-12 08:48 | CA_ITS ---
APPROVED REPORT EXAM: Comprehensive 2D, Doppler, and color-flow Echocardiogram Solution Design And Analysis Manager: Maxine Marsh RVT Ht: 5 ft 2 in Wt: 185lbs BSA: 1.85 BP: 136/84 mmHg Indications: SOA,EDEMA,HTN TDS 2D Dimensions EF AP4 64.60 % GL Strain -24.2 % M-Mode Dimensions RVDd 2.83 cm (0.9-2.6) LA Diam 4.97 cm (1.9-4.0) LVDd 5.09 cm (3.5-5.7) LVDs 3.19 cm (3.5-5.7) IVSd 0.51 cm (0.6-1.1) PWd 0.82 cm (0.6-1.1) EF (Teich) 67.00% FS 37.30% EDV (Teich) 123.20 mL ESV (Teich) 40.60 mL LV Diastology E Decel Time 123 (160-240 msec) E/A Ratio 1.4 Aortic Valve SAVANNAH Index 0.79 cm2/m2 AoV Peak Luis Miguel. 114.0 (50-130 cm/s) AO Peak GR. 5.20 mmHg AO Mean GR. 3.30 (<5 mmHg) AO VTI 23.4 (18-25 cm) SAVANNAH (VTI) 1.49 (2.5-4.5 cm2) Mitral Valve MV E Max Luis Miguel. 83.0 (40-130 cm/s) MV A Velocity 61.0 (40-130 cm/s) E/A Ratio 1.36 MV PHT 36.0 ms Pulmonary Valve PV Peak Velocity 79.0 (50-150 cm/s) Left Ventricle The left ventricle is normal size. The left ventricular systolic function is normal. The left ventricular ejection fraction is within the normal range. There is increased overall thickness. There is normal LV segmental wall motion. The left ventricular diastolic function is normal. LVEF is 55%. Right Ventricle The right ventricle is normal size. The right ventricular systolic function is normal. Atria The left atrium size is normal. The right atrium size is normal. There is no color Doppler evidence of interatrial shunt. Aortic Valve The aortic valve is mildly thickened. There is no aortic valvular stenosis. No aortic regurgitation is present. Mitral Valve The mitral valve is normal in structure. No evidence of mitral valve stenosis. Trace mitral regurgitation. Tricuspid Valve Tricuspid valve is grossly normal in structure and function. Trace tricuspid regurgitation. There is insufficient TR jet to estimate RVSP. Pulmonic Valve The pulmonic valve leaflets are not well-visualized. Trace pulmonic regurgitation. Great Vessels The aortic root is normal in size. IVC is normal in size and collapses >50% with inspiration. Pericardium There is no pericardial effusion. Other Information Study Quality: Technically Difficult Conclusion Technically difficult study due to poor acoustic windows. Normal biventricular systolic function. No significant valvular stenosis or regurgitation. Electronically signed by : Echo Duggan MD 08/12/2024 23:07:04
--- OUTSIDE RECORDS SUMMARY | 2024-08-12 08:48 | XMS_ITS | Continuity of Care Document ---
Author Name [facility] Organization [facility] Care Team Providers Care Community Relations Specialist Name Role Phone [facility] Unavailable Unavailable Medications Combined list of outpatient [...] ORAL, [employer], 90 ea. BOTTLE Active [id number] 2023 90 Pharmac y Data Transac tion Service Facilit y CETIRIZINE HCL (cetirizine HCl), 10 MG, TABLET, ORAL, [employer], 90 ea. BOTTLE Cancele d [id number] : 2023 0 Pharmac y Data Transac tion Service Facilit y CLOBETASOL PROPIONATE (clobetasol propionate) , 0.05 %, OINT. (G), TOPICAL, [employer], 30 g TUBE Active [id number] 2023 30 Pharmac y Data Transac tion Service Facilit y IBANDRONATE SODIUM (ibandronat e sodium), 150 MG, TABLET, ORAL, [employer] 3 ea. BLIST PACK Active [id number] 2023 3 Pharmac y Data Transac tion Service Facilit y MELOXICAM (meloxicam) , 15 MG, TABLET, ORAL, [employer] 1000 ea. BOTTLE Active [id number] 4 2023 90 Pharmac y Data Transac tion Service Facilit y Meloxicam (Meloxicam) , 15mg, Tablet, Oral, [employer] [facility], 1000 Ea. Bottle Active [id number] 4 2023 30 Pharmac y Data Transac tion Service Facilit y PANTOPRAZOL E SODIUM (pantoprazo le sodium), 40 MG, TABLET DR, ORAL, [employer] 1000 ea. BOTTLE Active [id number] 2023 90 Pharmac y Data Transac tion Service Facilit y PANTOPRAZOL E SODIUM (pantoprazo le sodium), 40 MG, TABLET DR, ORAL, [employer] 1000 ea. BOTTLE Active [id number] 2023 90 Pharmac y Data Transac tion Service Facilit y SERTRALINE HCL (sertraline HCl), 50 MG, TABLET, ORAL, EXELAN PHARMACE, 180 ea. BOTTLE Active [id number] 4 2023 90 Pharmac y Data Transac tion Service Facilit y SERTRALINE HCL (sertraline HCl), 50 MG, TABLET, ORAL, EXELAN PHARMACE, 180 ea. BOTTLE Cancele d [id number] : 2023 0 Pharmac y Data Transac tion Service Facilit y VALSARTAN (valsartan) , 160 MG, TABLET, ORAL, [employer], 90 ea. BOTTLE Active [id number] 2023 135 Pharmac y Data Transac tion Service Facilit y VALSARTAN (VALSARTAN) , 160 MG, TABLET, ORAL, [facility] 90 ea. BOTTLE Active [id number] 4 2023 135 Pharmac y Data Transac tion Service Facilit y ZOLPIDEM TARTRATE (zolpidem tartrate), 5 MG, TABLET, ORAL, [employer], 1000 ea. BOTTLE Active [id number] 4 2023 90 Pharmac y Data Transac tion Service Facilit y Immunizations Combined list of available immunizations from the Department of Defense and Veterans Affairs facilities. Immunization Series Date Given Administered By Site Reaction Lot Number CVX Code Drug Ged Instructor Status Comments Source Hep A, adult 2018 DUANE RIOJAS () Not Given Hep A, adult DoD zoster live 2015 DEEPALI ZHANG () Not Given zoster live DoD Social History Combined list of available smoking, tobacco, and other social history from Department of Defense and Veterans Affairs facilities. Social History Type Response Date Comment [facility] e This section is an empty social history section. DoD
--- NOTE | 2024-08-12 08:49 | US_ITS ---
FINAL REPORT CLINICAL HISTORY: Chronic bilateral edema, HTN, Hx- knee repair FINDINGS: Ankle-brachial indices were obtained. The right MARIN is 1.1. The left MARIN is 1.1. IMPRESSION: ABIs within normal limits bilaterally. Reviewed, Interpreted and Dictated by Maksim Dao MD Transcribed by Petra Hutchison Authenticated and . [facility]
--- NOTE | 2024-08-12 09:30 | CA_ITS ---
FINAL REPORT TECHNIQUE: Grayscale, color Doppler and duplex Doppler ultrasound of the kidneys, aorta and renal arteries was performed. Multiple velocities were measured. CLINICAL HISTORY: HTN COMPARISON: None FINDINGS: Aorta velocity: 88 cm/sec Right kidney: 11.5 cm. Normal in size and echogenicity without hydronephrosis. Right intrarenal RI: 0.52-0.71 Right renal artery velocity: 162 cm/sec. Right RAR (Renal artery-Aortic Ratio): 1.84 Left Kidney: 13.1 cm. Normal in size and echogenicity without hydronephrosis. Left intrarenal RI: 0.53-0.69 Left renal artery velocity: 165 cm/sec. Left RAR (Renal Artery-Aortic Ratio): 1.87 IMPRESSION: No evidence of significant renal artery stenosis. CT angiogram or postcontrast MR angiogram would be more sensitive for evaluation of possible renal artery stenosis. Reviewed, Interpreted and Dictated by Maksim Dao MD Transcribed by Diane Cary Authenticated and [facility]
--- NOTE | 2024-08-12 10:30 | US_ITS ---
FINAL REPORT CLINICAL HISTORY: R06.02 - Shortness of breath FINDINGS: RENAL ULTRASOUND Ultrasound images of the kidneys were obtained. The right kidney measures 12.2 cm in length. Benign-appearing 1.1 x 0.7 cm right renal cyst. There is no hydronephrosis. The left kidney measures 11.3 cm in length. It is normal echogenicity. There is no hydronephrosis. IMPRESSION: Right renal cyst. Otherwise, unremarkable exam. Reviewed, Interpreted and Dictated by Maksim Dao MD Transcribed by Diane Cary Authenticated and [facility]
== END 2024-08-12 23:59 | disposition home or self-care (01) ==
LOC: RT 08:46
PROVIDERS: PCP Nurse Practitioner Family; Visit Provider Nurse Practitioner Family
DX: N28.1 Cyst of kidney, acquired (principal); I73.9 Peripheral vascular disease, unspecified; R06.02 Shortness of breath; I10 Essential (primary) hypertension; R42 Dizziness and giddiness; Z98.890 Other specified postprocedural states
CPT/HCPCS: 76770; 93306; 93923; 93976

== ENCOUNTER 2024-12-08 14:25 | Outpatient (CLI) | payer MEDICARE, OTHER, SELFPAY ==
--- NOTE | 2024-12-08 05:33 | CA_ITS ---
FINAL REPORT CLINICAL HISTORY: History of multiple knee surgeries, Pt fell 1 week ago and increased knee pain since Pt on 325 mg ASA qd. COMPARISON: None FINDINGS: DUPLEX VENOUS SONOGRAPHY OF THE LEFT LOWER EXTREMITY Multiple transverse and longitudinal scans were performed of the femoropopliteal deep venous system, with augmentation and compression maneuvers. HISTORY: Pain after a fall FINDINGS: Normal phasic flow was noted in the visualized deep venous system. No intraluminal increased echogenicity is noted to suggest thrombus. There is normal compression and augmentation of the venous structures. No abnormal venous collaterals are seen. IMPRESSION: No evidence of deep venous thrombosis of the left lower extremity. Reviewed, Interpreted and Dictated by Cathy Pan MD Transcribed by Paola Osei Authenticated and . [facility]
--- OUTSIDE RECORDS SUMMARY | 2024-12-08 14:27 | XMS_ITS | Clinical Summary ---
Author Organization [facility] Address [address] [place] [address] Care Team Providers Care Resistance Welding Machine Operator Name Role Phone Royce Gaona DO Primary Care Provider [phone] Allergies Active Allergy Reactions Criticality Noted Date Comments Amlodipine Nausea 09/25/2022 Ciprofloxacin Nausea 09/25/2022 Codeine Other - please docum ent in the comment field Low 09/25/2022 Levofloxacin Nausea 09/25/2022 Lisinopril Nausea 09/25/2022 Losartan Potassium-Hctz Nausea 09/25/2022 Morphine Other - please docum ent in the comment field Low 09/25/2022 Sulfamethoxazole-Trimethoprim Nausea 2022 Medications albuterol 108 (90 Base) MCG/ACT inhaler 08/08/2022 Act mara aspirin 81 MG EC tablet Take 1 tablet (81 mg) by mouth 1 (one) time each day. Active fluticasone (Flonase) 50 MCG/ACT nasal spray 07/25/2022 Active Flovent HFA 110 MCG/ACT inhaler 10/19/2022 Act mara ibuprofen 800 MG tablet Take 1 tablet (800 mg) by mouth. Active pantoprazole (Protonix) 40 MG EC tablet 09/01/2022 Active sertraline (Zoloft) 50 MG tablet TAKE 1 TABLET BY MOUTH DAILY FOR 5 DAYS 11/03/2022 Active zolpidem (Ambien) 5 MG tablet 11/03/2022 Active Social History Tobacco Use Types Packs/Day Years Used Date Smoking Tobacco: Never Smokeless Tobacco: Never Alcohol Use Standard Drinks/Week Comments Never 0 (1 standard drink = 0.6 oz pur e alcohol) Comments Unknown Sex and Gender Information Value Date Recorded Sex Assigned at Not on file Legal Sex Female 8:57 PM EDT Gender Identity Not on file Sexual Orientation Not on file Last Filed Vital Signs Vital Sign Reading Time Taken Comments Blood Pressure 175/103 12/05/2022 8:54 AM EDT Pulse 89 12/05/2022 8:54 AM EDT Temperature - - Respiratory Rate - - Oxygen Saturation 96% 12/05/2022 8:54 AM EDT Inhaled Oxygen Concentration - - Weight 84.1 kg (185 lb 6.5 oz) 12/05/2022 8:54 A M EDT Height - - Body Mass Index - - Plan of Treatment Health Maintenance Due Date Last Done Comments [facility]-Bone Density Scan 1951 [facility]-Depression Screening 1950 [facility]-Hepatitis C Screening 1950 [facility]-Medicare Annual Wellness (AWV) 1950 [facility]-/Child/Adol SDOH Screenings 1950 [facility]- SDOH Screenings 1969 [facility]-Adult SDOH Screenings 1969 [facility]-DTaP,Tdap,and Td Vaccine s (1 - Tdap) 1970 CT Colonography 1996 Colonoscopy 1996 FIT-DNA 1996 FIT 1996 FOBT 1996 Sigmoidoscopy 1996 [facility]-Colorectal Cancer Screening 1996 [facility]-Breast Cancer Screening 2001 [facility]-Zoster Vaccines (1 of 2) 2001 [facility]-Pneumococcal Vaccine: 50 + Years (2 of 2 - PCV) 08/01/2016 08/02/2015, 06/07/2015 [id number] Vaccine (2 - 2024- season) 2024 07/03/2020 [facility]-Influenza Vaccine (#1) 2024 [facility]-RSV Vaccine: 60+ Years o r (1 - 1-dose 75+ series) 2026 HPV Vaccines Aged Out No longer eligi ble based on patient's age to complete this topic [facility]-HIB Vaccines Aged Out No longer e ligible based on patient's age to complete this topic [facility]-Hepatitis A Vaccines Aged Out No longer eligible based on patient's age to complete this topic [facility]-IPV Vaccines Aged Out No longer e ligible based on patient's age to complete this topic [facility]-Rotavirus Vaccines Aged Out No lo nger eligible based on patient's age to complete this topic [address] [place] [id number] MEDICARE [facility] [place] Care Teams Resistance Welding Machine Operator Relationship Specialty Start Date End Date Royce Gaona DO [address] [place] [address] [place] [id number] PCP - General 11/27/22
--- OUTSIDE RECORDS SUMMARY | 2024-12-08 14:27 | XMS_ITS | Clinical Summary ---
Author Organization [facility] Address [address] [id number] Care Team Providers Care [employer] Supervisor Name Role Phone Cheikh Gricel ORTEGA Primary Care Provider [phone] Allergies Active Allergy Reactions Criticality Noted Date Comments Amlodipine Besylate Unknown - High Severity Sulfamethoxazole-Trimethoprim Nausea Only 09/25 Ciprofloxacin Nausea Only 09/25/2022 Ciprofloxacin Hcl Unknown - High Severity 10/17 Codeine GI Intolerance 09/25/2022 Hydrochlorothiazide Unknown - High Severity Losartan Potassium-Hctz Nausea Only 09/25/2022 Levofloxacin Nausea Only 09/25/2022 Lisinopril Nausea Only 09/25/2022 Morphine GI Intolerance 09/25/2022 Amlodipine Nausea Only 09/25/2022 Telmisartan Unknown - High Severity 10/18/2023 Trimethoprim Unknown - High Severity 10/18/2023 Medications valsartan (DIOVAN) 160 MG tablet 3 Active sertraline (ZOLOFT) 50 MG tablet 3 Active cetirizine (zyrTEC) 10 MG tablet 3 Active pantoprazole (PROTONIX) 40 MG EC tablet 3 Active zolpidem (AMBIEN) 5 MG tablet 3 Active albuterol sulfate HFA 108 (90 Base) MCG/ACT inhaler 3 Active Flovent HFA 110 MCG/ACT inhaler 3 Active fluticasone (FLONASE) 50 MCG/ACT nasal spray 3 Active Spacer/Aero-Hol ding Chambers (AeroChamber Plus Carter[facility]Vu) [facility] 3 Active aspirin 81 MG EC tablet Take 1 tablet by mouth Daily. Active Cholecalciferol (Vitamin D3) 125 MCG (5000 UT) tablet dispersible Place on the tongue. Active ibuprofen (ADVIL,MOTRIN) 800 MG tablet Take 1 tablet by mouth Every 6 (Six) Hours As Needed for Mild Pain. Active Diclofenac Sodium (VOLTAREN) 1 % gel gel Apply topically to the appropriate area as directed. Active Nirmatrelvir & Ritonavir, 300mg/100mg, (Paxlovid, 300/100,) Take by mouth See Admin Instructions. TAKE 3 TABLETS TOGETHER (TWO 150 MG NIRMATRELVIR TABLETS AND ONE 100 MG RITONAVIR TABLET) BY MOUTH TWICE DAILY FOR 5 DAYS. Active pseudoephedrine (SUDAFED) 30 MG tablet Take 2 tablets by mouth Every 6 (Six) Hours As Needed. Active Active Problems Problem Noted Date Diagnosed Date NSAID long-term use 10/22/2023 Thrombocytosis 10/22/2023 History of bilateral knee replacement 10/22/2023 Generalized osteoarthrosis, involving multiple s ites 10/22/2023 LAKESHIA positive 10/18/2023 Overview (10/18/2023): 1:160 titer Joint pain 10/18/2023 Family History Medical History Relation Name Comments Kidney cancer Brother Other Brother Heart related p roblems Other Father Heart related p roblems Cancer Mother Mother None Colon cancer Mother Mother Arthritis Sister Lung cancer Sister Stomach cancer Sister Relation Name Status Comments Brother Father Mother Mother Sister Social History Tobacco Use Types Packs/Day Years Used Date Smoking Tobacco: Never Smokeless Tobacco: Never Comments:None Alcohol Use Standard Drinks/Week Comments Never 0 (1 standard drink = 0.6 oz pur e alcohol) Abuse Screen Answer Date Recorded Unsafe at Home or Work/School Not on file Feels Threatened by Someone? Not on file 12/2022 Does Anyone Keep You from Co ntacting Others or Doint Things Outside the Home? Not on file 01/08/2023 Physical Sign of Abuse Present Not on file 1 Housing Stability Answer Date Recorded Current Living Arrangements Not on file 12/2022 Potentially Unsafe Housing Conditions Not on arminda e 01/08/2023 Family and Community Support Answer Junior e Recorded Help with Day-to-Day Activities Not on file 01/08/2023 Lonely or Isolated Not on file 01/08/2023 Employment Answer Date Recorded Do you want help finding or keeping work or a maldonado b? Not on file 01/08/2023 Disabilities Answer Date Recorded Concentrating, Remembering, or Making Decisions Difficulty Not on file 01/08/2023 Doing Errands Independently Difficulty Not on fi le 01/08/2023 Education Answer Date Recorded Help with school or training? Not on file Preferred Language Not on file 01/08/2023 Comments Unknown Sex and Gender Information Value Date Recorded Sex Assigned at Female 10/02/2022 11:13 AM EDT Legal Sex Female 12:54 PM EDT Gender Identity Female 10/02/2022 11:13 AM EDT Sexual Orientation Straight 10/02/2022 11 :13 AM EDT Last Filed Vital Signs Vital Sign Reading Time Taken Comments Blood Pressure 160/78 10/09/2022 3:15 PM EDT Pulse - - Temperature - - Respiratory Rate - - Oxygen Saturation - - Inhaled Oxygen Concentration - - Weight 82.6 kg (182 lb) 10/30/2022 1:59 PM EDT Height 157.5 cm (5' 2.01 ) 10/30/2022 1:59 PM ED T Body Mass Index 33.28 10/30/2022 1:59 PM EDT Plan of Treatment Health Maintenance Due Date Last Done Comments DXA SCAN 1951 TDAP/TD VACCINES (1 - Tdap) 1970 MAMMOGRAM 1991 COLOGUARD 1996 COLON CANCER SCREENING 5 YEA R SIGMOIDOSCOPY 1996 COLONOSCOPY 1996 COL[address]AL CANCER SCREENING 1996 CT COLONOGRAPHY 1996 FECAL OCCULT BLOOD TEST 1996 FIT Testing (1 year) 1996 ZOSTER VACCINE (1 of 2) 2001 Pneumococcal Vaccine 50+ (2 of 2 - PCV) 08/01/2016 0 08/02/2015, 06/07/2015 ANNUAL WELLNESS VISIT 08/17/2022 HEPATITIS C SCREENING 08/17/2022 COVID-19 Vaccine (2 - 2024-26 season) 12/01/202405/2020 INFLUENZA VACCINE 12/31/2024 Insurance MEDICARE [facility] & [facility] Care Teams [employer] Supervisor Relationship Specialty Start Date End Date Gricel Salamanca APRN PCP - General Internal Medicine 12/16/21
--- NOTE | 2024-12-08 14:41 | XR_ITS ---
FINAL REPORT CLINICAL HISTORY: left lower leg pain and swelling, Mid caf FINDINGS: AP and lateral views of the left tibia and fibula were obtained. There is no prior exam for comparison. There is no acute fracture of the left tibia or fibula. There are changes from knee arthroplasty. IMPRESSION: No acute osseous abnormality of the left tibia or fibula. Reviewed, Interpreted and Dictated by Cathy Pan MD Transcribed by Petra Hutchison Authenticated and [facility]
== END 2024-12-08 23:59 | disposition home or self-care (01) ==
PROVIDERS: PCP Nurse Practitioner Family; Visit Provider Nurse Practitioner Family
DX: M79.662 Pain in left lower leg (principal); M79.89 Other specified soft tissue disorders; M25.569 Pain in unspecified knee; Z98.890 Other specified postprocedural states; W19.XXXA Unspecified fall, initial encounter
CPT/HCPCS: 73590; 93971